=== PATIENT | female | born 2000 | race Caucasian/White ===

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

== ENCOUNTER → 2018-08-28 17:01 | Outpatient (CLI) | payer OTHER, SELFPAY ==
--- NOTE | 2018-08-28 17:07 | RAD_ITS ---
STUDY: X-RAY - LUMBAR SPINE REASON FOR EXAM: Female, 18 years old. Pain TECHNIQUE: 5 view(s) of the lumbar spine were obtained. COMPARISON: xray spine feb 09, 2015 FINDINGS: There is no evidence of fracture or dislocation in the lumbar spine. The vertebral body heights and disc spaces are well-maintained. There are no significant degenerative changes. RAD/L/S Spine Min 4 Views IMPRESSION: No fracture or dislocation in the lumbar spine. Electronically Signed: Micky Richards, at 17:44 EDT Tel , Service support ,
== END ==
PROVIDERS: Family Provider Family Medicine; PCP Family Medicine; Referring Provider Family Medicine; Visit Provider Family Medicine
DX: M54.9 Dorsalgia, unspecified (principal)
CPT/HCPCS: 72110

== ENCOUNTER → 2019-11-12 10:28 | Outpatient (CLI) | payer BC, SELFPAY | PROVIDERS: PCP Family Medicine; Visit Provider Obstetrics & Gynecology | DX: Z11.3 Encounter for screening for infections with a predominantly sexual mode of transmission (principal) ==

== ENCOUNTER 2022-12-12 03:05 | Outpatient (CLI) | payer BC, MEDICAID, SELFPAY ==
[2022-12-12] VITALS (16 sets, daily range): BP systolic 132–155; BP diastolic 77–99; PULSE 75–97; TEMP 37; O2SAT 84–100; BMI 30.7
[2022-12-12] MEDS: Lactated Ringers 1,000 ML 999 ML IV (04:10)
[2022-12-12 04:20] LABS: ROM Internal Control Test YES-OK TO RESULT pt. (Internal QC); ROM Patient Test Negative (Negative); Record Kit Lot#, ROM+ K1409
[2022-12-12 04:22] LABS: Mucous, Urine 0 SEEN /hpf (<or=2+); White Blood Cells 0 SEEN /hpf (0-5)
[2022-12-12 04:24] LABS: Hemoglobin 14.1 g/dL (12.0-15.0); Mean Corp Hgb Conc 33.6 g/dL (32-36); Mean Corpuscular Hgb 29.9 pg (27.0-32.0); Mean Corpuscular Volume 89.2 fL (81-99); Platelet Count 355 K/mm3 (150-450); RBC Distribution Width CV 12.7 % (11.6-14.6); RBC Distribution Width SD 41.8 fl (35.1-43.9); Red Blood Count 4.71 M/mm3 (4.2-5.4); White Blood Count 9.7 K/mm3 (4.4-11.0)
[2022-12-12 04:32] LABS: Color, Urine Yellow (Yellow); Glucose, Dipstick Normal (Normal); Ketone-Dipstick Negative (Negative); Leukocyte Esterase-Dipstick Negative /ul (Negative); Nitrite-Dipstick Negative (Negative); Occult Blood-Urine 10 /ul (Negative); Protein-Dipstick 30 mg/dl (Negative); Urine Bilirubin Dipstick Negative (Negative); Urine Clarity Clear (Clear); Urine Urobilinogen Normal (Normal)
[2022-12-12 04:37] LABS: Bacteria 1+ /hpf (None Seen); Protein, Urine (Random) 27.1 mg/dL (<11.9); Protein:Creat Ratio 228 mg/g CRE (0-200); Red Blood Cells-Urine 0-5 SEEN /hpf (0-5); Squamous Epithelial Cells - UA 5-10 SEEN /hpf (5-10)
[2022-12-12 04:38] LABS: AST(SGOT) 17 U/L (15-37); Alanine Aminotransfer ALT/SGPT 15 U/L (13-56); Creatinine, Serum 0.69 mg/dL (0.55-1.02); EST Glomerular Filtration Rate 111 mL/min (>60); Est Glom Filt Rate - Afr Amer 135 mL/min (>60)
[2022-12-12] MEDS: Betamethasone/Betamethasone 30 MG/5 ML Vial 12 MG IM (05:17)
[2022-12-12] MEDS: Lactated Ringers 1,000 ML 125 ML IV (05:20)
[2022-12-12 06:06] LABS: Group B Strep DNA By PCR Negative (Negative); Internal Control PASS; Probe Check PASS; Specimen Processing Control PASS
--- NOTE | 2022-12-12 11:33 | OB.TRI.NOTE ---
HPI - General General Date of Service: 12/12/22 HPI Narrative HANNY SHOOK, is a 22 F who presents at 34.4 weeks for uterine contractions, is a patient of Dr Monet at [facility]. Maternal Data Information Gestational age: 34.4 weeks PFSH PFSH Home Medications No Known/Unobtainable [No Known Home Medications] 07/23/16 [History Last Taken Unknown] Allergy/AdvReac Type Severity Reaction Status Date / Time pineapple Allergy Severe Anaphylaxis Verified 12/12/22 03:31 pumpkin Allergy Hives Verified 12/12/22 03:31 turkey AdvReac Unknown other Verified 12/12/22 03:31 Social History Smoking Status: Never smoker ROS Constitutional Constitutional: Reports systems reviewed and no addt'l complaints, except as documented Cardiovascular Cardiovascular: Reports systems reviewed and no addt'l complaints, except as documented Respiratory/Chest Respiratory/Chest: Reports systems reviewed and no addt'l complaints, except as documented Gastrointestinal Gastrointestinal: Reports systems reviewed and no addt'l complaints, except as documented Genitourinary Genitourinary: Reports systems reviewed and no addt'l complaints, except as documented Musculoskeletal Musculoskeletal: Reports systems reviewed and no addt'l complaints, except as documented Integumentary Integumentary: Reports systems reviewed and no addt'l complaints, except as documented Neurologic Neurologic: Reports systems reviewed and no addt'l complaints, except as documented Psychiatric Psychiatric: Reports systems reviewed and no addt'l complaints, except as documented Endocrine Endocrinology: Reports systems reviewed and no addt'l complaints, except as documented Hematologic/Lymphatic Hematologic/Lymphatic: Reports systems reviewed and no addt'l complaints, except as documented Allergic/Immunologic Allergic/Immunologic: Reports systems reviewed and no addt'l complaints, except as documented Physical Exam Const General Appearance: cooperative and comfortable Resp normal respiratory effort, no retractions and no use of accessory muscles GI Inspection: gravid Extremity normal to inspection and full ROM Neuro moves all extremities Psych mental status grossly normal NST FHR Rate Baby B Baseline: 130 Variability:: Moderate Accelerations:: 15 x 15 Decelerations:: None NST Reactive:: Yes FHR Category:: Category I Uterine Activity:: irregular-mild Assessment & Plan (1) Uterine contractions during : PLAN: No cervical change celestone IM Repeat Celestone in 24 hours Follow up with primary OB (2) Elevated blood pressure complicating , antepartum: PLAN: PIH labs normal. Plan BID BPs at home with home monitor. Call primary OB with reading-follow up in the office. Charges/Coding Multi Select Codes Visit Charges Office Visit/Consults: 96144 OV L3 New Urinary/Genital Urinary/Genital CPT Codes: 60769-23 non-stress test Interp
== END 2022-12-12 07:55 | disposition home or self-care (01) ==
LOC: WPOUT 03:17 → WP 03:17
PROVIDERS: Registered Nurse; PCP Family Medicine; Referring Provider Obstetrics & Gynecology; Visit Provider Obstetrics & Gynecology
DX: O47.03 False labor before 37 completed weeks of gestation, third trimester (principal); Z3A.34 34 weeks gestation of pregnancy; O99.891 Other specified diseases and conditions complicating pregnancy; R03.0 Elevated blood-pressure reading, without diagnosis of hypertension
CPT/HCPCS: 96360; 96361; 96372; 36415; 59025; 59050; 81001; 82565; 82570; 84112; 84156; 84450; 84460; 84550; 85027; 87081; 87653; J7120; J0702

== ENCOUNTER 2022-12-13 07:00 | Outpatient (CLI) | payer BC, MEDICAID, SELFPAY ==
[2022-12-13] MEDS: Betamethasone/Betamethasone 30 MG/5 ML Vial 12 MG IM (07:27)
[2022-12-13 08:41] VITALS: BP 127/64; PULSE 80
== END 2022-12-13 07:30 | disposition home or self-care (01) ==
LOC: WPOUT 07:07 → WP 07:07
PROVIDERS: PCP Family Medicine; Referring Provider Obstetrics & Gynecology; Visit Provider Obstetrics & Gynecology
DX: O47.03 False labor before 37 completed weeks of gestation, third trimester (principal); Z3A.34 34 weeks gestation of pregnancy
CPT/HCPCS: 96372; J0702

== ENCOUNTER 2022-12-15 18:40 | Inpatient (IN) | payer BC, MEDICAID, SELFPAY ==
[2022-12-15] VITALS (54 sets, daily range): BP systolic 113–187; BP diastolic 84–109; PULSE 75–104; RESP 15–16; TEMP 36.5–37.3; O2SAT 97–100; BMI 31.4
--- NOTE | 2022-12-15 18:49 | PCM.HP.OB ---
HPI - General General Date of Admission: 12/15/22 Date of Service: 12/15/22 Chief Complaint: elevated BP HPI Narrative HANNY SHOOK, is a 22 F who presents with elevated blood pressure at home. She receives care with Dr. Apolonia Guzmán. She states she was in OB triage a few days ago with mild range BP's. Pre e labs at that time were normal. She was given BMZ x 2 at that time. She says she has been monitoring her blood pressures at home. Her SBP today at home was 170's. She called the after hours line for Dr. Guzmán and was told to go to [facility] for evaluation. She came to [facility] as she lives closer to [facility]. She reports a MOYA behind her eyes, blurred vision, upper abdominal pain, and nausea. She denies ctx, vb, lof. DFM today. [facility] Medical History (Updated 12/15/22 @ 23:[address] Courtney Graham, DO) Family history of malignant hyperthermia Pre-eclampsia Home Medications No Known/Unobtainable [No Known Home Medications] 07/23/16 [History Last Taken Unknown] Allergy/AdvReac Type Severity Reaction Status Date / Time pineapple Allergy Severe Anaphylaxis Verified 12/12/22 03:31 pumpkin Allergy Hives Verified 12/12/22 03:31 turkey AdvReac Unknown other Verified 12/12/22 03:31 Surgical History (Updated 12/15/22 @ 19:35 by Wendy Mims) History of surgery Social History Smoking Status: Never smoker NST FHR Rate Baby A Baseline: 140 Variability:: Moderate Accelerations:: 15 x 15 Decelerations:: None Uterine Activity:: no regular ctx's Vital Signs Vital Signs Vital Signs: 12/15/22 18:25 12/15/22 18:25 12/15/22 18:28 Pulse Rate 78 Blood Pressure 179/108 H BP Systolic 179 BP Diastolic 108 Pulse Ox 99 12/15/22 18:28 12/15/22 18:30 12/15/22 18:30 Pulse Rate 75 81 Blood Pressure BP Systolic BP Diastolic Pulse Ox 98 12/15/22 18:35 12/15/22 18:35 12/15/22 18:38 Pulse Rate 85 Blood Pressure 185/109 H BP Systolic 185 BP Diastolic 109 Pulse Ox 99 12/15/22 18:38 12/15/22 18:40 12/15/22 18:40 Pulse Rate 78 80 Blood Pressure 178/105 H BP Systolic 178 BP Diastolic 105 Pulse Ox 12/15/22 18:40 12/15/22 18:45 12/15/22 18:45 Pulse Rate 79 Blood Pressure BP Systolic BP Diastolic Pulse Ox 98 99 Weight Weight: 161 lb Body Mass Index (BMI) 31.4 Physical Exam Const alert and no apparent distress General Appearance: comfortable HEENT normocephalic Resp normal respiratory effort GI soft to palpation, non-tender and non-distended Extremity normal to inspection Neuro deep tendon reflexes 2+ bilaterally Labs Labs Labs: Blood Type B NEGATIVE Antibody Screen POSITIVE Hct 40.2 % (37-47) Hgb 13.9 g/dL (12.0-15.0) Group B Strep DNA Negative (Negative) Miscellaneous Test Assessment & Plan (1) 34 weeks gestation of : PLAN: Pt of Dr. Guzmán here for r/o pre e. BP severe range on admission, and on repeat: SBP 170-180 - Labetalol hypertensive protocol started - Mag for seizure prophylaxis - Fluid restrictions - Strict I&O's - Pre e labs with elevated p/c ratio - Tylenol x 1 for MOYA - CEFM - S/p BMZ x 2 - GBS negative - Start induction of labor for pre eclampsia with severe features given persistent MOYA, vision changes, severe range blood pressures requiring IV medication. Discussed special care nursery and there is a possibility that baby is transferred for higher level of care. Discussed possible section (2) Elevated blood pressure complicating , antepartum: (3) Headache in :
[2022-12-15] MEDS: Labetalol (Prefilled) 20 MG/4 ML IV (19:05)
[2022-12-15] MEDS: Magnesium Sulfate 4gm/100mL 4 GM/100 ML IV.SOLN. IV (19:06)
[2022-12-15] MEDS: Lactated Ringers 1,000 ML 15 ML IV (19:06)
[2022-12-15 19:09] LABS: Hematocrit 40.2 % (37-47); Hemoglobin 13.9 g/dL (12.0-15.0); Mean Corp Hgb Conc 34.6 g/dL (32-36); Mean Corpuscular Hgb 30.7 pg (27.0-32.0); Mean Corpuscular Volume 88.7 fL (81-99); Mean Platelet Vol. 10.2 fl (6.2-12.0); Platelet Count 374 K/mm3 (150-450); RBC Distribution Width CV 12.8 % (11.6-14.6); RBC Distribution Width SD 41.7 fl (35.1-43.9); Red Blood Count 4.53 M/mm3 (4.2-5.4); White Blood Count 13.3 K/mm3 (4.4-11.0)
[2022-12-15 19:13] LABS: AST(SGOT) 26 U/L (15-37); Alanine Aminotransfer ALT/SGPT 27 U/L (13-56); Creatinine, Serum 0.67 mg/dL (0.55-1.02); EST Glomerular Filtration Rate 114 mL/min (>60); Est Glom Filt Rate - Afr Amer 138 mL/min (>60); Uric Acid 5.3 mg/dL (2.6-6.0)
[2022-12-15 19:14] LABS: Protein, Urine (Random) 95.7 mg/dL (<11.9); Protein:Creat Ratio 1300 mg/g CRE (0-200)
[2022-12-15] MEDS: Magnesium Sulfate 20 GM/500 ML BAG IV (19:24)
[2022-12-15 19:28] LABS: Amphetamine Urine VISTA NEGATIVE (<1000 ng/mL); Barbiturate Urine VISTA NEGATIVE (< 200 ng/mL); Benzodiazepine Urine VISTA NEGATIVE (< 200 ng/mL); Cocaine Urine VISTA NEGATIVE (< 300 ng/mL); Ecstacy Urine VISTA NEGATIVE (< 500 ng/mL); Methadone Urine VISTA NEGATIVE (< 300 ng/mL); PCP Urine VISTA NEGATIVE (< 25 ng/mL); THC Urine VISTA NEGATIVE (< 50 ng/mL); Vista UDS pH Range 6
[2022-12-15] MEDS: 0.9% Normal Saline Single 100 ML IV.SOLN. INTRA-UTER (20:17)
[2022-12-15] MEDS: Labetalol 100 MG Tablet PO (21:21)
[2022-12-15] MEDS: Acetaminophen 500 MG Tablet PO (21:51)
[2022-12-15] MEDS: Sodium Citrate/Citric Acid 30 ML UDC PO (21:51)
[2022-12-15] MEDS: Cefazolin 2 GM in 0.9% Normal Saline (100mL Bag) 100 ML IV (22:00)
--- NOTE | 2022-12-15 23:22 | PCM.PN.BLA ---
Progress Note Delayed entry. Presented to L&D to check on pt around 2138. Pt reports doing well and offered no new complaints. Assessment & Plan Assessment/Plan (1) Headache in : (2) 34 weeks gestation of : (3) intolerance to labor, delivered, current hospitalization: PLAN: At bedside to check on pt. FHT 140/min rocio/no accels/+occasional late decels. Discussed with patient intolerance to labor and recommend section. Discussed r/b/a to a section and consent obtained. (4) Elevated blood pressure complicating , antepartum:
[2022-12-15] MEDS: Oxytocin 15 Units/NS 250ml 15 UNITS/250 ML IV.SOLN 83 UNITS IV (23:23)
--- NOTE | 2022-12-15 23:28 | PCM.OPRPT ---
Problems Associated Problem List Diagnoses (1) Pre-eclampsia: (2) intolerance to labor, delivered, current hospitalization: (3) 34 weeks gestation of : Report of Operation Date of Procedure: 12/15/22 Pre-Operative Diagnosis: 34 week gestation, single IUP, pre eclampsia with severe features, intolerance to labor Post-Operative Diagnosis: As above Surgery/Procedure Performed:: PLTCS via pfannenstiel incision Description of Surgical Findings:: VFI in cephalic presentation. Scant clear fluid. Normal appearing placenta. Normal appearing uterus and bilateral adnexa Surgeon: Courtney Graham certified nursing attendant: Kelly PEÑA Type of Anesthesia: Spinal Special Medications: None Specimen's removed: Placenta Drains: Soto Estimated Blood Loss (mL): 500 Fluids Replaced: 700 mL Description of Procedure: The patient was taken to the operating room where spinal anesthesia was found to be adequate. She was prepped and draped in the dorsal supine position with a leftward tilt. A Pfannenstiel skin incision was made with a scalpel. This incision was carried down to the underlying layer of fascia. The fascia was incised in the midline with a scalpel. The fascia was extended laterally with traction. The rectus muscles were in the midline. The peritoneum was entered bluntly with good visualization of the bladder. The peritoneal incision was extended bluntly. A bladder blade was inserted. A low transverse incision was made on the uterus with a scalpel. The uterine incision was extended with traction both cephalad and caudad. Membranes were ruptured for a scant amount of clear fluid. The head of the infant was delivered easily through the hysterotomy followed by the shoulders and the body without any traction, force, or delay. The cord was clamped and cut immediately and the infant was handed off to the waiting nursery staff. The placenta was removed with manual extraction. The uterus was cleared of all clot and debris. The uterus was exteriorized. The uterine incision was closed with 1-0 Vicryl in a running locked fashion. Several additional [id number] sutures were placed for hemostasis. Uterus was placed back in the abdomen. Kelly was placed over the hysterotomy and lower uterine segment. Hemostasis was again noted. The subfascial space was noted to be hemostatic. The fascia was closed with strata fix in a running fashion. The subcutaneous space was irrigated and then to be hemostatic. The subcutaneous space was reapproximated using 3-0 Vicryl. The skin was closed with 4-0 Monocryl in a subcuticular fashion. A dressing was placed. Instrument, sponge, sharp counts were correct. The patient was taken to the recovery room in stable condition. The expanded duty dental assistant as noted above was present for the entire case and assisted with draping the patient, delivery of the infant, and closure. Grafts/Implants Used: None Procedure Start Time: 22:23 Procedure Stop Time: 22:58 Complications None Admit VTE Documentation VTE Present on Admission: No VTE Mechan Device Prophylaxis: SCD's
[2022-12-16] VITALS (61 sets, daily range): BP systolic 116–140; BP diastolic 68–95; PULSE 76–103; RESP 16–18; TEMP 36.2–37.3; O2SAT 88–100
[2022-12-16] MEDS: Ketorolac 30 MG/ML Syringe IV ×4 (00:58→18:58)
[2022-12-16] MEDS: Lactated Ringers 1,000 ML 15 ML IV (02:48)
[2022-12-16 04:07] LABS: Hematocrit 34.2 % (37-47); Hemoglobin 11.6 g/dL (12.0-15.0); Mean Corp Hgb Conc 33.9 g/dL (32-36); Mean Corpuscular Hgb 30.1 pg (27.0-32.0); Mean Corpuscular Volume 88.8 fL (81-99); Mean Platelet Vol. 9.7 fl (6.2-12.0); Platelet Count 262 K/mm3 (150-450); RBC Distribution Width CV 12.8 % (11.6-14.6); RBC Distribution Width SD 41.1 fl (35.1-43.9); Red Blood Count 3.85 M/mm3 (4.2-5.4); White Blood Count 15.7 K/mm3 (4.4-11.0)
[2022-12-16] MEDS: Magnesium Sulfate 20 GM/500 ML BAG IV ×2 (04:07→14:14)
[2022-12-16 04:29] LABS: ALB/GLOB Ratio 0.7 RATIO (0.9-2.4); AST(SGOT) 22 U/L (15-37); Alanine Aminotransfer ALT/SGPT 16 U/L (13-56); Albumin, Serum 2.1 g/dL (3.2-5.0); Alkaline Phosphatase 116 U/L (45-117); Anion Gap 9 (5-15); BUN 12 mg/dL (7-18); BUN/Creat Ratio 18.1 RATIO (10-20); Calcium,Total 6.8 mg/dL (8.5-10.1); Chloride 107 mmol/L (98-107); Creatinine, Serum 0.66 mg/dL (0.55-1.02); EST Glomerular Filtration Rate 116 mL/min (>60); Est Glom Filt Rate - Afr Amer 141 mL/min (>60); Estimated Creatinine Clearance 94.41 ml/min; Glucose 98 mg/dL (74-106); Potassium 3.5 mmol/L (3.5-5.1); Protein, Total 5.1 g/dL (6.4-8.2); Sodium Level 139 mmol/L (136-145)
--- NOTE | 2022-12-16 08:47 | PN.OBGYN_ITS ---
Subjective Subjective Patient denies nausea or vomiting, headache or overt visual changes. Pain well controlled. Objective Data Objective Data Vital Signs: Vital Signs Temp Pulse Resp BP Pulse Ox O2 Del Method 97.4 F L 86 18 136/89 H 100 Room Air 12/16/22 07:39 12/16/22 08:38 12/16/22 07:39 12/16/22 08:38 12/16/22 07:39 12/16/22 07:39 Oxygen Delivery Method Room Air Weight: 73.028 kg Body Mass Index (BMI) 31.4 Intake & Output: Intake and Output for Last 24 Hours 12/14/22 12/15/22 12/16/22 23:59 23:59 23:59 Intake Total 1210.00 / 1210.00 1085.83 / 1085.83 Output Total 800 / 800 800 / 800 Balance 410.00 / 410.00 285.83 / 285.83 Lab / Micro Data 12/16/22 04:00 12/16/22 04:00 Labs: Laboratory Results - last 24 hr 12/15/22 18:40: WBC 13.3 H, RBC 4.53, Hgb 13.9, Hct 40.2, MCV 88.7, MCH 30.7, MCHC 34.6, RDW Std Deviation 41.7, RDW Coeff of Philomena 12.8, Plt Count 374, MPV 10.2, Creatinine 0.67, Estim Creat Clear Calc 93.00, Est GFR (MDRD) Af Amer 138, Est GFR (MDRD) Non-Af 114, Uric Acid 5.3, AST 26, ALT 27, U Random Total Protein 95.7 H, Urine Creatinine 73.60, Protein/Creatinin Ratio 1300 H, Urine Opiates Screen NEGATIVE, Urine Methadone Screen NEGATIVE, Ur Barbiturates Screen N EGATIVE, Ur Phencyclidine Scrn NEGATIVE, Ur Amphetamines Screen NEGATIVE, MDMA (Ecstasy) Screen NEGATIVE, U Benzodiazepines Scrn NEGATIVE, Urine Cocaine Screen NEGATIVE, U Cannabinoids Screen NEGATIVE, Ur Drug Screen Comment , Blood Type B NEGATIVE, Antibody Screen POSITIVE, Antibody Identification ANTI-D 12/16/22 04:00: WBC 15.7 H, RBC 3.85 L, Hgb 11.6 L, Hct 34.2 L, MCV 88.8, MCH 30.1, MCHC 33.9, RDW Std Deviation 41.1, RDW Coeff of Philomena 12.8, Plt Count 262, MPV 9.7, Sodium 139, Potassium 3.5, Chloride 107, Carbon Dioxide 23.0, Anion Gap 9, BUN 12, Creatinine 0.66, Estim Creat Clear Calc 94.41, Est GFR (MDRD) Af Amer 141, Est GFR (MDRD) Non-Af 116, BUN/Creatinine Ratio 18.1, Glucose 98, Calcium 6.8 L, Total Bilirubin 0.20, AST 22, ALT 16, Alkaline Phosphatase 116, Total Protein 5.1 L, Albumin 2.1 L, Globulin 3.0, Albumin/Globulin Ratio 0.7 L, Screen NEGATIVE, Baby's Blood Type A POSITIVE, Baby's JOHNNY NEGATIVE Physical Exam Narrative Extremities with 1+ edema, 3+ DTR's and 2 beats of clonus Const alert General Appearance: cooperative GI GI Narrative: soft, moderate distention, fundus firm, appropriately tender. Abdominal bandage clean dry and intact Assessment & Plan (1) Pre-eclampsia: PLAN: Postoperative day #1 status post primary section for intolerance to labor, preeclampsia with severe features at 34 weeks gestation. is in the special care nursery and doing well. Patient is doing well. Continue magnesium prophylaxis for 24 hours. Continue to monitor blood pressures closely and continue maintenance labetalol for preeclampsia. Routine care. (2) delivery delivered:
[2022-12-16] MEDS: Senna/Docusate Sodium 1 Tablet PO (10:32)
[2022-12-16] MEDS: Labetalol 100 MG Tablet PO ×2 (10:32→22:29)
[2022-12-17] VITALS (9 sets, daily range): BP systolic 114–139; BP diastolic 69–87; PULSE 73–87; RESP 14–16; TEMP 36.3–37.1; O2SAT 97–99
[2022-12-17] MEDS: Ibuprofen 600 MG Tablet PO ×4 (01:22→19:12)
--- NOTE | 2022-12-17 08:19 | PCM.PN.OB ---
Subjective Subjective Denies complaints Objective Data Objective Data Vital Signs: Vital Signs Temp Pulse Resp BP Pulse Ox O2 Del Method 98.5 F 82 16 130/77 H 97 Room Air 12/17/22 04:15 12/17/22 04:15 12/17/22 04:15 12/17/22 04:15 12/17/22 04:15 12/17/22 04:15 Oxygen Delivery Method Room Air Weight: 161 lb Body Mass Index (BMI) 31.4 Intake & Output: Intake and Output for Last 24 Hours 12/15/22 12/16/22 12/17/22 23:59 23:59 23:59 Intake Total 1210.00 / 1210.00 3019.66 / 3019.66 Output Total 800 / 800 2400 / 2400 800 / 800 Balance 410.00 / 410.00 619.66 / 619.66 -800 / -800 Lab / Micro Data 12/16/22 04:00 12/16/22 04:00 Physical Exam Const alert, oriented x3 and no apparent distress HEENT normocephalic GI soft to palpation, non-tender and non-distended GI Narrative: fundus firm, mid & below umbilicus Incision - bandage c/d/i Extremity normal to inspection and no calf tenderness Assessment & Plan (1) delivery delivered: COMMENT: POD#2 (2) Pre-eclampsia: QUALIFIERS: Trimester: third trimester Qualified Code(s): O14.93 - Unspecified pre-eclampsia, third trimester PLAN: Plan Heme - HDS ID - AF, no signs infection PreE - BP's overall normal & will monitor.. s/p magnesium sulfate.
[2022-12-17] MEDS: Labetalol 100 MG Tablet PO ×2 (10:11→22:08)
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
--- NOTE | 2022-12-17 15:44 | NURSING ---
1430 pt moved to room 3 for hospital convenience; pt spending time in the SCN with
[2022-12-18 02:28] VITALS: BP 122/89; PULSE 73; RESP 16; TEMP 37; O2SAT 99
[2022-12-18] MEDS: Ibuprofen 600 MG Tablet PO ×2 (02:28→09:33)
--- NOTE | 2022-12-18 08:12 | PCM.PROGNOTE ---
Subjective Subjective patient seen at bedside, doing well. Patient reports good pain control. lochia mild. denies MOYA, visual changes or epigastric pain. Objective Data Objective Data Vital Signs: Vital Signs Temp Pulse Resp BP Pulse Ox O2 Del Method 98.6 F 73 16 122/89 H 99 Room Air 12/18/22 02:28 12/18/22 02:28 12/18/22 02:28 12/18/22 02:28 12/18/22 02:28 12/18/22 02:28 Oxygen Delivery Method Room Air Weight: 73.028 kg Body Mass Index (BMI) 31.4 Intake & Output: Intake and Output for Last 24 Hours 12/16/22 12/17/22 12/18/22 23:59 23:59 23:59 Intake Total 3019.66 / 3019.66 Output Total 2400 / 2400 800 / 800 Balance 619.66 / 619.66 -800 / -800 Lab / Micro Data 12/16/22 04:00 12/16/22 04:00 Physical Exam Const alert and oriented x3 General Appearance: cooperative HEENT normocephalic Neck General: normal visual inspection GI soft to palpation and non-distended GI Narrative: Fundus firm Extremity normal to inspection and no calf tenderness Skin no rashes or lesions noted Neuro oriented x3 and CN's II-XII intact bilaterally Psych mental status grossly normal Assessment & Plan Assessment/Plan (1) delivery delivered: (2) Pre-eclampsia: QUALIFIERS: Trimester: third trimester Qualified Code(s): O14.93 - Unspecified pre-eclampsia, third trimester PLAN: Plan POD# 3 , Doing well PRE E with severe features Routine care pain mgmt monitor VS- BPs wnl - no medication indicated at this time ambulation dc to hotel has follow up with primary OB tomorrow- Dr. Monet total time spent face to face on day of discharge was <30min
--- NOTE | 2022-12-18 08:14 | PCM.DC ---
Discharge Instructions Diet Discharge Diet: No restrictions Activity May resume sexual activity in: 6-8 weeks Lifting Restrictions: 25 Dressing / Incision Call your doctor if your incision/area has: Continuous Slow Oozing, Sudden Increased Bleeding, Increased Pain/ Swelling, Increased Redness, Foul Smelling Discharge and Swelling at the incision site Call your doctor if you observe: Fever of 101 or Higher, Inability to urinate, Using more than 1 pad per hour and Uncontrolled pain Additional Dressing/Incision Instructions:: remove dressing at 7 days post op- if it becomes saturated prior to that time you may remove it. Let soap and water run over incision sites and dab dry. keep incision clean and dry. Follow Up Care Please Follow Up With: Tish Frazier MD When: 1-2 weeks post of incision check and again at 6 weeks post . [phone] Test Results: Test results from this visit will be discussed in further detail at your follow-up appointment, if applicable. Discharge Plan Admission Admit Date/Time: 12/15/22 18:40 Attending Provider: Courtney Graham Primary Care Provider: Viktor Pugh Discharge Orders/Prescriptions Prescriptions: New sennosides-docusate sodium [Stool Softener-Stimulant Laxat] 8.6-50 mg Tablet 1 - 2 tab PO DAILY Qty: 0 0RF acetaminophen 500 mg Tablet 1,000 mg PO Q6H Qty: 0 0RF ibuprofen 600 mg Tablet 600 mg PO Q6H Qty: 0 0RF labetalol 100 mg Tablet 100 mg PO BID 30 Days Qty: 60 0RF simethicone 80 mg Tablet,Chewable 80 mg PO PCHS PRN (Reason: Indigestion/stomach pain) Qty: 0 0RF No Action No Known Home Medications Referrals / Follow Up: Viktor Pugh MD [Primary Care Provider] - Disposition Disposition (needs filled in before D/C Order can be placed): Home, Self Care
--- NOTE | 2022-12-18 08:18 | DS.PCM_ITS ---
Discharge Summary Date of Admission: 12/15/22 Date of Discharge: 12/18/22 Summary: Patient was admitted to [facility] with care elsewhere with Dr. Apolonia Monet. She is 34 weeks gestation with severe range blood pressure. Started on magnesium sulfate diagnosed with preeclampsia with severe features. Patient admitted for induction of labor however intolerance to labor was noted and patient underwent a primary low-transverse section Dr. Rutledge was well without complication. Patient was started on labetalol 100 mg twice daily for maintenance postoperatively and blood pressures remained in normal range. Patient was discharged home postoperative day 3 in stable condition. She will follow-up with her primary OB on 12/19/2022 as scheduled. Meaningful Use Info Meaningful Use Diagnoses (Choose all that apply): None applicable Discharge Plan Admission Admit Date/Time: 12/15/22 18:40 Attending Provider: Courtney Graham Primary Care Provider: Viktor Pugh Discharge Orders/Prescriptions Prescriptions: New sennosides-docusate sodium [Stool Softener-Stimulant Laxat] 8.6-50 mg Tablet 1 - 2 tab PO DAILY Qty: 0 0RF acetaminophen 500 mg Tablet 1,000 mg PO Q6H Qty: 0 0RF ibuprofen 600 mg Tablet 600 mg PO Q6H Qty: 0 0RF labetalol 100 mg Tablet 100 mg PO BID 30 Days Qty: 60 0RF simethicone 80 mg Tablet,Chewable 80 mg PO PCHS PRN (Reason: Indigestion/stomach pain) Qty: 0 0RF No Action No Known Home Medications Referrals / Follow Up: Viktor Pugh MD [Primary Care Provider] - Disposition Disposition (needs filled in before D/C Order can be placed): Home, Self Care
[2022-12-18] MEDS: Labetalol 100 MG Tablet PO (09:34)
[2022-12-18 09:37] VITALS: BP 131/81; PULSE 92; RESP 18; TEMP 36.7; O2SAT 97
== END 2022-12-18 10:00 | disposition home or self-care (01) | DRG 786 ==
LOC: WP 22:38 → WPOUT 12-16 14:15
PROVIDERS: Admitting Provider Obstetrics & Gynecology; PCP Family Medicine; Visit Provider Obstetrics & Gynecology
DX: O77.9 Labor and delivery complicated by fetal stress, unspecified (principal); O60.14X0 Preterm labor third trimester with preterm delivery third trimester, not applicable or unspecified; O14.14 Severe pre-eclampsia complicating childbirth; Z37.0 Single live birth; Z3A.34 34 weeks gestation of pregnancy
CPT/HCPCS: 59025; 59050; 80053; 80307; 82565; 82570; 84156; 84450; 84460; 84550; 85027; 85461; 86850; 86870; 86900; 86901; 99221; J7120; G0378; J2790

== ENCOUNTER 2024-05-18 17:30 | Emergency (ER) | payer BC, MEDICAID, SELFPAY ==
[2024-05-18 17:31] VITALS: BP 128/77; PULSE 101; RESP 18; TEMP 37.1; O2SAT 100; BMI 26.9
[2024-05-18] MEDS: 0.9% Normal Saline (1000mL) 1,000 ML 999 ML IV ×2 (18:53→22:52)
[2024-05-18 19:05] LABS: Absolute Lymphocyte Count 0.68 X10^3/uL (0.83-4.51); Absolute Neutrophil Count 6.9 X10^3/uL (2.0-7.7); Basophil# 0.02 X10^3/uL; Basophil% 0.2 % (0-1); Eosinophil# 0.03 X10^3/uL; Eosinophils% 0.4 % (0-5); Hematocrit 44.1 % (37-47); Hemoglobin 14.7 g/dL (12.0-15.0); Lymphocyte # 0.68 X10^3/ul (0.83-4.51); Lymphocyte % 8.3 % (19-41); Mean Corp Hgb Conc 33.3 g/dL (32-36); Mean Corpuscular Hgb 29.6 pg (27.0-32.0); Mean Corpuscular Volume 88.7 fL (81-99); Mean Platelet Vol. 8.3 fl (6.2-12.0); Monocyte# 0.57 X10^3/uL; NRBC Flagged by Analyzer 0 % (0-5); Neutrophil # 6.87 X10^3/uL (2.7-7.7); Neutrophil % 83.9 % (47-70); Platelet Count 344 K/mm3 (150-450); RBC Distribution Width CV 12.7 % (11.6-14.6); RBC Distribution Width SD 41.2 fl (35.1-43.9); Red Blood Count 4.97 M/mm3 (4.2-5.4); White Blood Count 8.2 K/mm3 (4.4-11.0)
[2024-05-18 19:28] LABS: Internal QC Validated? YES +Cl - CLEAR BKGD; Pregnancy, Serum, hCG Quali. POSITIVE Negative
[2024-05-18 19:47] LABS: Lipase 26 U/L (13-75)
[2024-05-18 20:07] LABS: ALB/GLOB Ratio 1.5 RATIO (0.9-2.4); AST(SGOT) 28 U/L (<=31); Alanine Aminotransfer ALT/SGPT 24 U/L (<=34); Albumin, Serum 4.6 g/dL (3.5-5.0); Alkaline Phosphatase 68 U/L (35-104); Anion Gap 13 (5-15); BUN 8 mg/dL (4-19); BUN/Creat Ratio 13.2 RATIO (10-20); Calcium 9.3 mg/dL (7.6-11.0); Carbon Dioxide 20.9 mmol/L (22.0-29.0); Chloride 101 mmol/L (96-108); Creatinine, Serum 0.6 mg/dL (0.6-1.0); EST Glomerular Filtration Rate 129 (>60); Estimated Creatinine Clearance 118.43 ml/min; Glucose 94 mg/dL (70-99); Potassium 3.8 mmol/L (3.3-5.1); Protein, Total 7.6 g/dL (5.9-8.4); Sodium Level 135 mmol/L (133-145); Total Bilirubin 0.38 mg/dL (0.00-1.30)
[2024-05-18 20:18] VITALS: BP 126/72; PULSE 120; RESP 16; TEMP 36.6; O2SAT 100
[2024-05-18 21:08] LABS: Mucous, Urine 0 SEEN /hpf (<or=2+); White Blood Cells 0 SEEN /hpf (0-5)
[2024-05-18 21:14] LABS: Color, Urine Yellow (Yellow); Glucose, Dipstick Normal (Normal); Leukocyte Esterase-Dipstick Negative /ul (Negative); Nitrite-Dipstick Negative (Negative); Occult Blood-Urine Negative /ul (Negative); Protein-Dipstick Negative (Negative); Urine Bilirubin Dipstick Negative (Negative); Urine Clarity Clear (Clear); Urine Urobilinogen Normal (Normal); Urine pH 6.5 (5.0 - 8.0)
[2024-05-18 21:18] LABS: Ketone-Dipstick 150 mg/dl (Negative)
--- NOTE | 2024-05-18 21:29 | US_ITS ---
PROCEDURE: TRANSVAGINAL W/PREG US REASON FOR EXAM: Nausea and vomiting. COMPARISON: None. FINDINGS Transvaginal ultrasound was performed. Single live intrauterine . Gestational sac is present which is dated 7 weeks and 2 days. [place]-rump length which dates 7 weeks and 1 days. A yolk sac is visualized. heart rate of 174 beats per minute. Estimated gestational age by ultrasound of 7 weeks and 2 days. ANDREI by ultrasound of 01/02/2025. ANDREI by LMP of 11/30/2024. Uterus measures 9.1 x 6.4 x 4.7 cm. Lower uterine segment 1 0.5 cm region which may represent a subchorionic hematoma. Right ovary measures 3.0 x 3.0 x 2.0 cm with preserved vascular flow. Left ovary measures 2.9 x 1.9 x 1.4 cm with preserved vascular flow. US/Transvaginal w/Preg US IMPRESSION: Single live intrauterine . Possible subchorionic hematoma. Reading Location: [id number]
--- NOTE | 2024-05-18 21:31 | EKG12_ITS ---
Test Reason : DYSRHYTHMIA Blood Pressure : */* mmHG Vent. Rate : 118 BPM Atrial Rate : 118 BPM P-R Int : 158 ms QRS Dur : 76 ms QT Int : 338 ms P-R-T Axes : 57 69 37 degrees QTcB Int : 473 ms Sinus tachycardia Otherwise normal ECG Confirmed by Zach Garnica ([id number]), editorial writer DUYEN RAIN ([id number]) on 05/19/2024 8:24:40 AM Referred By: Confirmed By: Zach Garnica
--- NOTE | 2024-05-18 21:40 | RAD_ITS ---
PROCEDURE: CHEST 1 VIEW (PORTABLE) REASON FOR EXAM: Nausea and vomiting. TECHNIQUE: Frontal view of the chest. COMPARISON: None. FINDINGS: The cardiac and mediastinal contours are normal. The lungs are clear. RAD/Chest 1 View (Portable) IMPRESSION: NEGATIVE SINGLE VIEW OF THE CHEST. Reading Location: [place] [id number]
[2024-05-18] MEDS: Ondansetron 4 MG/2 ML Vial IV (21:48)
[2024-05-18 21:51] LABS: Bacteria RARE /hpf (None Seen); Red Blood Cells-Urine 0 SEEN /hpf (0-5); Squamous Epithelial Cells - UA 0-5 SEEN /hpf (5-10)
[2024-05-18 22:00] VITALS: BP 123/54; PULSE 117; RESP 18; O2SAT 99
--- NOTE | 2024-05-18 22:17 | EDS_ITS ---
HPI HPI - Female History of Present Illness Chief Complaint: Narrative Narrative: Chief complaint and HPI: Nausea and vomiting in first trimester . 23-year-old female who is G2, P1 presents for evaluation of nausea and vomiting in first trimester . Patient states she is approximately 8 weeks by last menstrual period. Has not had an ultrasound. Patient follows with Dr. Graham with [facility]. Patient states that she developed nausea and vomiting this Friday that has not improved. She states she has had little p.o. intake secondary to the nausea and vomiting. She is not on any antinausea medication. Patient endorses cough. Denies any fever, chills, shortness of breath, chest pain, diarrhea, dysuria. Patient states her last meal was earlier today in which she had [employer] that resulted in emesis. She has a past medical history of a due to preeclampsia at 34 weeks. She denies any sick contacts that she knows of. Patient does endorse some mild pelvic abdominal cramping. Denies any vaginal bleeding. Denies any vaginal discharge. Review of systems: See HPI Medications: As listed on the chart Allergies: As listed on the chart PFSH: Per chart Vital signs: As listed on the chart. Reviewed. Physical exam: Gen: A&O x3, NAD Head: Normocephalic, atraumatic Eyes: No sclera icterus, conjunctiva clear ENT: Mildly dry mucous membranes Neck: Trachea midline, No JVD CV: tachycardic, regular rhythm, no murmurs, no peripheral edema Resp: Lungs CTA BL, no w/r/c GI: Abd soft, non-distended, non-tender, no r/r/g Musc: Full ROM, no deformity Skin: Warm, dry Neuro: Alert, oriented, grossly intact, sensation intact Psych: Cooperative, appropriate mood and affect [facility] Medical History (Updated 05/19/24 @ 00:[address] Rojas Atwood DO) Pre-eclampsia Family history of malignant hyperthermia Home Medications ?Medication ?Instructions ?Recorded ?Last Taken ?Type acetaminophen 500 mg tablet 1,000 mg (2 x 500 mg) PO Q 6H #0 12/18/22 Unknown Rx tabs ibuprofen 600 mg tablet 600 mg PO Q6H #0 tabs Unknown Rx azithromycin 250 mg tablet See Rx Instructions PO .COM PLEX #6 04/03/24 Unknown Rx tabs benzonatate 100 mg capsule 100 mg PO TID #30 caps 03/24 04/17 Unknown Rx ondansetron 4 mg disintegrating 4 mg PO Q8H #10 tabs 0 04/03/24 Unknown Rx tablet ondansetron 4 mg disintegrating 4 mg PO Q8H PRN PRN Na usea #10 tabs 05/19/24 Unknown Rx tablet Allergy/AdvReac Type Severity Reaction Status Date / Time pineapple Allergy Severe Anaphylaxis Verified 05/18/24 17:31 pumpkin Allergy Hives Verified 05/18/24 17:31 turkey AdvReac Unknown other Verified 05/18/24 17:31 Family History (Updated 04/03/24 @ 10:28 by Maranda Pena) Other CAD (coronary artery disease) Diabetes Hypertension Surgical History History of section History of surgery Social History (Updated 04/03/24 @ 10:28 by Maranda Pena) Smoking Status: Never smoker alcohol intake: current substance use type: does not use EXAM Physical Exam Const Vital Signs: 05/18/24 17:31 05/18/24 20:18 05/18/24 22:00 Temperature 98.7 F 97.9 F Temperature Source Oral Temporal Pulse Rate 101 H 120 H 117 H Respiratory Rate 18 16 18 Blood Pressure 128/77 H 126/72 H 123/54 H Blood Pressure Mean 94 90 77 Pulse Ox 100 100 99 Oxygen Delivery Method Room Air Room Air Room Air 05/18/24 23:57 05/19/24 01:12 Temperature 98.0 F Temperature Source Pulse Rate 88 110 H Respiratory Rate 16 18 Blood Pressure 123/67 H 120/56 L Blood Pressure Mean 85 77 Pulse Ox 99 97 Oxygen Delivery Method Room Air MDM MDM MDM Narrative Medical decision making narrative: 23-year-old female who is G2, P1 presents for evaluation of nausea and vomiting in first trimester . Associated symptom is pelvic abdominal pain and cough. Differential diagnosis includes but is not limited to nausea and vomiting secondary to , electrolyte abnormality, dehydration, pelvic abdominal pain in first trimester , ectopic , viral illness, pneumonia. Protocol labs were initiated in triage. NS bolus and Zofran ordered for symptoms. I did add on chest x-ray as well as pelvic ultrasound as patient has not had a confirmed IUP. Beta-hCG ordered. I agree with the previous labs that were ordered. CBC without leukocytosis or anemia. Platelet count unremarkable. CMP without significant electrolyte abnormality, TAJ, transaminitis. Lipase unremarkable. Serum positive. Beta-hCG 84 ,537. UA positive for ketones but negative for UTI or bacteriuria. Will give another NS bolus. Ultrasound shows a single live intrauterine . Gestational age is 7 weeks and 2 days. heart rate is 174. There is a possible subchorionic hematoma. Patient not having any vaginal bleeding. On reexamination, patient's nausea has improved. She was able to tolerate p.o. intake without any vomiting. Given patient follows with [facility], her [facility] was consulted and patient was discussed with Dr. Pena who is on-call. She agrees with the plan for discharge home and follow-up outpatient. Patient was given a prescription for Zofran as needed for nausea and vomiting at home. Strict return precautions were given. Patient confirmed understand the plan and was updated on all results. EKG: Interpreted by me/EM physician: EKG shows sinus tachycardia without acute ischemic changes. Heart rate 118 Diagnostic: Interpreted by me/EM physician: Chest x-ray without pneumonia, effusion, cardiomegaly, pneumothorax Impression: 1. Nausea and vomiting in first trimester 2. Dehydration secondary to #1 3. Pelvic pain in first trimester Lab Data Labs: Laboratory Results - last 24 hr 05/18/24 05/18/24 18:50 20:55 WBC 8.2 RBC 4.97 Hgb 14.7 Hct 44.1 MCV 88.7 MCH 29.6 MCHC 33.3 RDW Std Deviation 41.2 RDW Coeff of Philomena 12.7 Plt Count 344 MPV 8.3 Immature Gran % (Auto) 0.200 Neut % (Auto) 83.9 H Lymph % (Auto) 8.3 L [place] % (Auto) 7.0 Eos % (Auto) 0.4 Baso % (Auto) 0.2 Absolute Neuts (auto) 6.9 Absolute Lymphs (auto) 0.68 L Nucleated RBC % 0 Sodium 135 Potassium 3.8 Anion Gap 13 BUN 8 Creatinine 0.6 Estim Creat Clear Calc 118.43 Est GFR (MDRD) Non-Af 129 BUN/Creatinine Ratio 13.2 Glucose 94 Calcium 9.3 Total Bilirubin 0.38 AST 28 ALT 24 Alkaline Phosphatase 68 Total Protein 7.6 Albumin 4.6 Globulin 3.0 Albumin/Globulin Ratio 1.5 Lipase 26 HCG, Quant 18073 H Serum , Qual POSITIVE Urine Color Yellow Urine Clarity Clear Urine pH 6.5 Ur Specific [place] 1.010 Urine Protein Negative Urine Glucose (UA) Normal Urine Ketones 150 A* Urine Occult Blood Negative Urine Nitrite Negative Urine Bilirubin Negative Urine Urobilinogen Normal Ur Leukocyte Esterase Negative Urine RBC 0 SEEN Urine WBC 0 SEEN Ur Squamous Epith Cells 0-5 SEEN Urine Bacteria RARE Urine Mucus 0 SEEN Radiography Diagnostic Testing: Clinical Impression(s) from Imaging Studies Obstetrics Ultrasound 05/18/24 21:29 IMPRESSION: Single live intrauterine . Possible subchorionic hematoma. Reading Location: [id number] Chest X-Ray 05/18/24 21:40 IMPRESSION: NEGATIVE SINGLE VIEW OF THE CHEST. Reading Location: [id number] Discharge Plan Triage Chief Complaint: ED Provider: Rojas Atwood Dx/Rx/DC Orders Clinical Impression: Nausea and vomiting in , Abdominal pain during in first trimester Instructions: 1st Trimester, ED Vomiting (Adult) Prescriptions: New ondansetron 4 mg tablet,disintegrating 4 mg PO Q8H PRN PRN (Reason: Nausea) Qty: 10 0RF No Action azithromycin 250 mg tablet See Rx Instructions PO .COMPLEX Qty: 6 0RF Rx Instructions: For 250 mg dose pack: take 500 mg today (day 1), then 250 mg for 4 days (days 2-5) PO benzonatate 100 mg capsule 100 mg PO TID Qty: 30 0RF ondansetron 4 mg tablet,disintegrating 4 mg PO Q8H Qty: 10 0RF acetaminophen 500 mg Tablet 1,000 mg PO Q6H Qty: 0 0RF ibuprofen 600 mg Tablet 600 mg PO Q6H Qty: 0 0RF Primary Care Provider: Se Pugh Referrals: Se Pugh MD [Primary Care Provider] - 3-5 Days Courtney Graham DO [Med Staff - Active Staff] - 3-5 Days Activity Restrictions/Additional Instructions: Return back to the ED if symptoms change or worsen. Follow-up with your [facility]. Print Language: Filipino Disposition Disposition: Home, Self Care Discharge Date/Time: 05/19/24 01:12
--- NOTE | 2024-05-18 23:44 | ED.RN ---
called chemistry asking for eta on pt's hcq quant. Was told test has 14 more mins
[2024-05-18 23:57] VITALS: BP 123/67; PULSE 88; RESP 16; O2SAT 99
[2024-05-18 23:57] LABS: hCG Titer Quant., Serum 84537 mIU/mL (<9 non-preg)
[2024-05-19 01:12] VITALS: BP 120/56; PULSE 110; RESP 18; TEMP 36.7; O2SAT 97
== END 2024-05-19 01:12 | disposition home or self-care (01) ==
PROVIDERS: Emergency Provider Surgery; PCP Family Medicine; Visit Provider Surgery
DX: O21.9 Vomiting of pregnancy, unspecified (principal); Z3A.01 Less than 8 weeks gestation of pregnancy; O99.281 Endocrine, nutritional and metabolic diseases complicating pregnancy, first trimester; E86.0 Dehydration; R10.2 Pelvic and perineal pain
CPT/HCPCS: 71045; 76817; 80053; 81001; 83690; 84702; 84703; 85025; 87631; 93005; 96361; 96374; 99283; A4216; J2405

== ENCOUNTER 2024-07-22 11:33 | Emergency (ER) | payer BC, MEDICAID, SELFPAY ==
[2024-07-22 11:34] VITALS: BP 110/72; PULSE 67; RESP 15; TEMP 36.5; O2SAT 100; BMI 27.7
--- NOTE | 2024-07-22 11:51 | EX.ED.DYSGE1 ---
HPI <MARCUS Pierre - Last Filed: 07/22/24 14:20> History of Present Illness Chief Complaint: Nausea/Vomiting/Diarrhea Narrative Narrative: Patient presenting today with nausea and vomiting she has had over the last 2 days. She has tried taking Zofran but the medication did not work as she vomited shortly after taking it. She is currently 17 weeks , she follows with Dr. Graham, she denies any complications so far. She has a history of preeclampsia with her previous . She is G2, P1. She reports 2 episodes of loose stools over the past 2 days. She reports that her daughter has been having loose stools as well. She reports yesterday having epigastric abdominal pain, today she reports the pain is located across her lower abdomen. She reports she has had occasional dysuria throughout her but denies any recent dysuria. She denies vaginal bleeding, hematuria, fevers, and chills. PFSH <MARCUS Pierre - Last Filed: 07/22/24 14:20> [facility] Medical History Pre-eclampsia Family history of malignant hyperthermia Home Medications ?Medication ?Instructions ?Recorded ?Last Taken ?Type ondansetron 4 mg disintegrating 4 mg PO Q8H #10 tabs 04/03/24 07/22/24 Rx tablet aspirin 81 mg tablet,delayed 81 mg PO DAILY 07/22/24 07/22/24 History release ondansetron 4 mg disintegrating 4 mg PO Q8H PRN PRN Nausea #10 tabs 07/22/24 Unknown Rx tablet vit no.95-ferrous 1 tab PO DAILY 07/22/24 07/22/24 History fumarate 28 mg-folic acid 800 mcg tablet () Allergy/AdvReac Type Severity Reaction Status Date / Time pineapple Allergy Severe Anaphylaxis Verified 07/22/24 11:37 pumpkin Allergy Hives Verified 07/22/24 11:37 turkey AdvReac Unknown other Verified 07/22/24 11:37 Family History Other CAD (coronary artery disease) Diabetes Hypertension Surgical History History of section History of surgery Social History household members: spouse housing: house Smoking Status: Never smoker alcohol intake: current substance use type: does not use ROS <MARCUS iPerre - Last Filed: 07/22/24 14:20> ROS ED Constitutional Constitutional ED: Denies chills or fever(s) Cardiovascular Cardiovascular: Denies chest pain Respiratory/Chest Respiratory/Chest: Denies dyspnea Gastrointestinal Gastrointestinal: Reports abdominal pain, nausea and vomiting; Denies constipation or diarrhea Genitourinary Genitourinary ED: Denies dysuria, hematuria or urinary urgency Musculoskeletal Musculoskeletal: Denies back pain Integumentary Denies rash Neurologic Neurologic: Denies weakness EXAM <MARCUS Pierre - Last Filed: 07/22/24 14:20> Physical Exam Const Vital Signs: 07/22/24 11:34 07/22/24 13:33 07/22/24 14:05 Temperature 97.7 F L 98 F Temperature Source Oral Pulse Rate 67 75 75 Respiratory Rate 15 16 16 Blood Pressure 110/72 112/78 112/78 Blood Pressure Mean 84 89 89 Pulse Ox 100 98 98 Positive well nourished, well developed and no apparent distress General Appearance ED: well developed HEENT Reports normocephalic and head/scalp atraumatic Mouth ED: Yes moist mucous membranes normal Eyes PERRL and EOMs intact bilaterally Neck full ROM and supple Chest Wall inspection of chest normal Resp normal respiratory effort and clear to auscultation bilaterally Cardio regular rate and regular rhythm GI soft to palpation, non-distended and no masses GI Narrative: Minimal tenderness across the lower abdomen, no rigidity or guarding. Back/Spine normal ROM and normal to inspection Extremity normal to inspection and full ROM Neuro oriented x3, CN's II-XII intact bilaterally, moves all extremities, no focal motor deficits and no sensory deficits noted Sensorium / Orientation: awake and alert Psych mental status grossly normal and thought process normal Skin no rashes or lesions noted and no wounds <Luther Haley MD - Last Filed: 07/22/24 14:44> Physical Exam Const Vital Signs: 07/22/24 11:34 07/22/24 13:33 07/22/24 14:05 Temperature 97.7 F L 98 F Temperature Source Oral Pulse Rate 67 75 75 Respiratory Rate 15 16 16 Blood Pressure 110/72 112/78 112/78 Blood Pressure Mean 84 89 89 Pulse Ox 100 98 98 MDM <MARCUS Pierre - Last Filed: 07/22/24 14:20> [facility] Narrative Medical decision making narrative: Patient presenting today with nausea and vomiting she has had over the past 2 days. She reports pain across her lower abdomen and 2 episodes of loose stools over the past 2 days. Her daughter has also had loose stools. She is currently 17 weeks . She will be given IV fluids and Zofran. Abdominal labs will be obtained to assess for leukocytosis, electrolyte abnormality, TAJ, pancreatitis, and hepatobiliary etiology. A UA will be obtained to assess for UTI.. Her CBC, CMP, and lipase are unremarkable. heart tones are 160 bpm. UA shows positive urine ketones, 500 leukocytes and 1+ bacteria however it is contaminated with 10-25 squamous epithelial cells. She reported having intermittent dysuria throughout her but states she has not had any recent dysuria. I did speak with Dr. Salas, on-call OB, she recommends culturing the urine and holding off on treatment at this time given her nausea and vomiting. They will follow-up with her in the office next week regarding the urine culture. She reports improvement of her symptoms on reexamination, she is tolerating p.o. fluids. I suspect she likely has a gastroenteritis given her daughter has also been having loose stools. She will be discharged home in stable condition, I will give her a prescription for Zofran, recommended following closely with OB and return instructions were discussed. Lab Data Attestation: I reviewed the patient's lab results. Labs: Laboratory Results - last 24 hr 07/22/24 07/22/24 11:46 12:14 WBC 8.2 RBC 4.49 Hgb 13.6 Hct 39.0 MCV 86.9 MCH 30.3 MCHC 34.9 RDW Std Deviation 42.4 RDW Coeff of Philomena 13.4 Plt Count 323 MPV 8.4 Immature Gran % (Auto) 0.500 Neut % (Auto) 88.9 H Lymph % (Auto) 5.3 L [place] % (Auto) 5.1 Eos % (Auto) 0.0 Baso % (Auto) 0.2 Absolute Neuts (auto) 7.3 Absolute Lymphs (auto) 0.43 L Nucleated RBC % 0 Sodium 134 Potassium 3.7 Chloride 102 Carbon Dioxide 21.4 Anion Gap 11 BUN 10 Creatinine 0.56 L Estim Creat Clear Calc 128.65 Est GFR (MDRD) Non-Af 130 BUN/Creatinine Ratio 17.4 Glucose 107 H Calcium 8.6 Total Bilirubin 0.44 AST 20 ALT 10 Alkaline Phosphatase 47 Total Protein 6.7 Albumin 3.7 Globulin 3.0 Albumin/Globulin Ratio 1.3 Lipase 20 Urine Color Yellow Urine Clarity Sl. Cloudy Urine pH 6.5 Ur Specific [place] 1.015 Urine Protein 30 H Urine Glucose (UA) Normal Urine Ketones 150 A* Urine Occult Blood 25 H Urine Nitrite Negative Urine Bilirubin Negative Urine Urobilinogen 1 H Ur Leukocyte Esterase 500 H Urine RBC 0 SEEN Urine WBC 0-5 SEEN Ur Squamous Epith Cells 10-25 SEEN Urine Bacteria 1+ Urine Mucus 0 SEEN Urine Yeast RARE <Luther Haley MD - Last Filed: 07/22/24 14:44> MDM History & Record Review Discussion w/independent historian: Patient Lab Data Labs: Laboratory Results - last 24 hr 07/22/24 07/22/24 11:46 12:14 WBC 8.2 RBC 4.49 Hgb 13.6 Hct 39.0 MCV 86.9 MCH 30.3 MCHC 34.9 RDW Std Deviation 42.4 RDW Coeff of Philomena 13.4 Plt Count 323 MPV 8.4 Immature Gran % (Auto) 0.500 Neut % (Auto) 88.9 H Lymph % (Auto) 5.3 L [place] % (Auto) 5.1 Eos % (Auto) 0.0 Baso % (Auto) 0.2 Absolute Neuts (auto) 7.3 Absolute Lymphs (auto) 0.43 L Nucleated RBC % 0 Sodium 134 Potassium 3.7 Chloride 102 Carbon Dioxide 21.4 Anion Gap 11 BUN 10 Creatinine 0.56 L Estim Creat Clear Calc 128.65 Est GFR (MDRD) Non-Af 130 BUN/Creatinine Ratio 17.4 Glucose 107 H Calcium 8.6 Total Bilirubin 0.44 AST 20 ALT 10 Alkaline Phosphatase 47 Total Protein 6.7 Albumin 3.7 Globulin 3.0 Albumin/Globulin Ratio 1.3 Lipase 20 Urine Color Yellow Urine Clarity Sl. Cloudy Urine pH 6.5 Ur Specific [place] 1.015 Urine Protein 30 H Urine Glucose (UA) Normal Urine Ketones 150 A* Urine Occult Blood 25 H Urine Nitrite Negative Urine Bilirubin Negative Urine Urobilinogen 1 H Ur Leukocyte Esterase 500 H Urine RBC 0 SEEN Urine WBC 0-5 SEEN Ur Squamous Epith Cells 10-25 SEEN Urine Bacteria 1+ Urine Mucus 0 SEEN Urine Yeast RARE Management Discussion w/another healthcare provider: Industrial Management Teacher (Dr. Salas, [employer]) Treatment and Re-Evaluation :: Dr. Haley: I have personally performed a face to face assessment of the patient and have reviewed the AJ Note. I performed a substantive portion of the visit including all aspects of the following. My camacho findings include: History is nausea, vomiting, loose stool for 1 to 2 days. at 17 weeks gestation. No vaginal bleeding. Exam is afebrile. Vital signs noted. Nontoxic-appearing. Cardiovascular examination regular rate and rhythm. Lungs clear to auscultation bilaterally. Abdomen soft and nontender without guarding or rebound. Positive bowel sounds. Medical Decision Making: Check labs. Check UA. Contaminated specimen. Sent for culture. IV fluids. Discussed with POSTMASTER. Follow-up as outpatient. Disposition is discharged home in stable condition. Other additions or changes: [None] Discharge Plan Triage Chief Complaint: Nausea/Vomiting/Diarrhea ED Midlevel Provider: Vicenta Suarez ED Provider: Luther Haley Dx/Rx/DC Orders Clinical Impression: Gastroenteritis, Second trimester Instructions: ED Vomiting (Adult) Prescriptions: New ondansetron 4 mg tablet,disintegrating 4 mg PO Q8H PRN PRN (Reason: Nausea) Qty: 10 0RF No Action ondansetron 4 mg tablet,disintegrating 4 mg PO Q8H Qty: 10 0RF aspirin 81 mg tablet,delayed release (DR/EC) 81 mg PO DAILY PNV cmb#95-ferrous fumarate-FA [] 28 mg iron- 800 mcg tablet 1 tab PO DAILY Primary Care Provider: Se Pugh Referrals: Se Pugh MD [Primary Care Provider] - Activity Restrictions/Additional Instructions: Follow-up with OB early next week, return for any worsening symptoms. Stay well hydrated. Print Language: [place] Islander Disposition Disposition: Home, Self Care Discharge Date/Time: 07/22/24 14:10
[2024-07-22 12:03] LABS: Absolute Lymphocyte Count 0.43 X10^3/uL (0.83-4.51); Absolute Neutrophil Count 7.3 X10^3/uL (2.0-7.7); Basophil# 0.02 X10^3/uL; Basophil% 0.2 % (0-1); Hemoglobin 13.6 g/dL (12.0-15.0); Lymphocyte # 0.43 X10^3/ul (0.83-4.51); Lymphocyte % 5.3 % (19-41); Mean Corp Hgb Conc 34.9 g/dL (32-36); Mean Corpuscular Hgb 30.3 pg (27.0-32.0); Mean Corpuscular Volume 86.9 fL (81-99); Mean Platelet Vol. 8.4 fl (6.2-12.0); Monocyte# 0.42 X10^3/uL; Monocyte% 5.1 % (0-10); NRBC Flagged by Analyzer 0 % (0-5); Neutrophil # 7.27 X10^3/uL (2.7-7.7); Neutrophil % 88.9 % (47-70); POSITIVE DIFFERENTIAL YES; Platelet Count 323 K/mm3 (150-450); RBC Distribution Width CV 13.4 % (11.6-14.6); RBC Distribution Width SD 42.4 fl (35.1-43.9); Red Blood Count 4.49 M/mm3 (4.2-5.4); White Blood Count 8.2 K/mm3 (4.4-11.0)
[2024-07-22] MEDS: 0.9% Normal Saline (1000mL) 1,000 ML 999 ML IV ×2 (12:12→13:13)
[2024-07-22] MEDS: Ondansetron 4 MG/2 ML Vial IV (12:12)
[2024-07-22 12:18] LABS: Mucous, Urine 0 SEEN /hpf (<or=2+); Red Blood Cells-Urine 0 SEEN /hpf (0-5)
[2024-07-22 12:21] LABS: Color, Urine Yellow (Yellow); Glucose, Dipstick Normal (Normal); Leukocyte Esterase-Dipstick 500 /ul (Negative); Nitrite-Dipstick Negative (Negative); Occult Blood-Urine 25 /ul (Negative); Protein-Dipstick 30 mg/dl (Negative); Specific Gravity, Urine 1.015 (1.002-1.030); Urine Bilirubin Dipstick Negative (Negative); Urine Clarity Sl. Cloudy (Clear); Urine Urobilinogen 1 mg/dl (Normal); Urine pH 6.5 (5.0 - 8.0)
[2024-07-22 12:34] LABS: Ketone-Dipstick 150 mg/dl (Negative)
[2024-07-22 12:39] LABS: Bacteria 1+ /hpf (None Seen); Squamous Epithelial Cells - UA 10-25 SEEN /hpf (5-10); White Blood Cells 0-5 SEEN /hpf (0-5); Yeast-Urine RARE /hpf (None Seen)
[2024-07-22 13:13] LABS: ALB/GLOB Ratio 1.3 RATIO (0.9-2.4); AST(SGOT) 20 U/L (<=31); Alanine Aminotransfer ALT/SGPT 10 U/L (<=34); Albumin, Serum 3.7 g/dL (3.5-5.0); Alkaline Phosphatase 47 U/L (35-104); Anion Gap 11 (5-15); BUN 10 mg/dL (4-19); BUN/Creat Ratio 17.4 RATIO (10-20); Calcium,Total 8.6 mg/dL (7.6-11.0); Carbon Dioxide 21.4 mmol/L (21.0-32.0); Chloride 102 mmol/L (98-108); Creatinine, Serum 0.56 mg/dL (0.70-1.20); EST Glomerular Filtration Rate 130 (>60); Estimated Creatinine Clearance 128.65 ml/min (50-250); Glucose 107 mg/dL (70-99); Lipase 20 U/L (13-75); Potassium 3.7 mmol/L (3.3-5.1); Protein, Total 6.7 g/dL (5.9-8.4); Sodium Level 134 mmol/L (133-145); Total Bilirubin 0.44 mg/dL (0.00-1.30)
[2024-07-22 13:33] VITALS: BP 112/78; PULSE 75; RESP 16; O2SAT 98
[2024-07-22 14:05] VITALS: BP 112/78; PULSE 75; RESP 16; TEMP 36.6; O2SAT 98
== END 2024-07-22 14:10 | disposition home or self-care (01) ==
PROVIDERS: Physician Assistant; Emergency Provider Emergency Medicine; PCP Family Medicine; Referring Provider Emergency Medicine; Visit Provider Emergency Medicine
DX: O99.612 Diseases of the digestive system complicating pregnancy, second trimester (principal); K52.9 Noninfective gastroenteritis and colitis, unspecified; Z3A.17 17 weeks gestation of pregnancy
CPT/HCPCS: 80053; 81001; 83690; 85025; 87086; 87088; 96361; 96374; 99283; A4216; J2405

== ENCOUNTER 2024-11-08 16:08 | Emergency (ER) | payer MEDICAID, SELFPAY ==
[2024-11-08] VITALS (7 sets, daily range): BP systolic 113–135; BP diastolic 62–83; PULSE 115–130; RESP 16–24; TEMP 36.4–37.2; O2SAT 98–100; BMI 32.0
--- NOTE | 2024-11-08 16:58 | EKG12_ITS ---
Test Reason : >heart rate Blood Pressure : */* mmHG Vent. Rate : 121 BPM Atrial Rate : 121 BPM P-R Int : 126 ms QRS Dur : 88 ms QT Int : 306 ms P-R-T Axes : 45 64 32 degrees QTcB Int : 434 ms Sinus tachycardia Otherwise normal ECG Confirmed by JAQUELINE FINE, ROBERT ([id number]), deputy editor in chief DUYEN RAIN ([id number]) on 11/09/2024 8:49:35 AM Referred By: Confirmed By: ROBERT PARSONS MD
[2024-11-08 17:27] LABS: Hematocrit 36.1 % (37-47); Hemoglobin 12.2 g/dL (12.0-15.0); Immature Granulocytes Count 0.080 X10^3/uL (0.0-0.0); Mean Corp Hgb Conc 33.8 g/dL (32-36); Mean Corpuscular Volume 87.4 fL (81-99); Mean Platelet Vol. 8.6 fl (6.2-12.0); NRBC Flagged by Analyzer 0 % (0-5); Platelet Count 316 K/mm3 (150-450); RBC Distribution Width CV 12.5 % (11.6-14.6); RBC Distribution Width SD 40.3 fl (35.1-43.9); Red Blood Count 4.13 M/mm3 (4.2-5.4); White Blood Count 9.6 K/mm3 (4.4-11.0)
--- NOTE | 2024-11-08 17:48 | CT_ITS ---
PROCEDURE: CTA CHEST W/WO CONTRAST 11/08/2024 REASON FOR EXAM: DYSPNEA, TACHYCARDIA, TACHYPNEA THIRD TRIMESTER [place] TECHNIQUE: CTA CHEST W/WO CONTRAST Multiplanar Sagittal and Coronal images were obtained. One or more dose reduction techniques were used (e.g., Automated exposure control, adjustment of the mA and/or kV according to patient size, use of iterative reconstruction technique). CONTRAST: 100 cc of Isovue 370 intravenous contrast. RADIATION DOSE SUMMARY: CTDlvol: 20 mGy DLP: 371 mGycm COMPARISON: Chest x-ray 05/18/2024 FINDINGS: Hardware: None. Lymph nodes: No enlarged mediastinal, hilar, or axillary lymph nodes. Heart: Not enlarged. No pericardial effusion. Thoracic Aorta: No thoracic aortic aneurysm or dissection. Pulmonary Vessels: No large central pulmonary emboli are identified. Contrast timing is suboptimal for evaluation of more distal branches. Lungs and Airways: Diffuse pulmonary vascular congestion. No focal consolidation or discrete pulmonary mass. Airways are patent. Pleura: No pleural effusion. No pneumothorax. Upper Abdomen: Visualized portions of the upper abdominal viscera are unremarkable. Bones: Degenerative changes of the thoracic spine. CT/CTA Chest W/WO Contrast IMPRESSION: 1. No filling defects to suggest a central pulmonary embolism. 2. No acute findings in the chest as imaged. Reading [facility]
[2024-11-08 18:07] LABS: AST(SGOT) 17 U/L (<=31); Alanine Aminotransfer ALT/SGPT 10 U/L (<=34); Albumin, Serum 3.6 g/dL (3.5-5.0); Alkaline Phosphatase 115 U/L (35-104); Anion Gap 12 (5-15); BUN 7 mg/dL (4-19); BUN/Creat Ratio 13.6 RATIO (10-20); Calcium,Total 9.2 mg/dL (7.6-11.0); Carbon Dioxide 19.1 mmol/L (21.0-32.0); Chloride 106 mmol/L (98-108); Estimated Creatinine Clearance 150.56 ml/min (50-250); Globulin 2.9 g/dL (2.2-4.2); Glucose 110 mg/dL (70-99); Potassium 3.5 mmol/L (3.3-5.1)
--- NOTE | 2024-11-08 19:10 | EDS_ITS ---
HPI History of Present Illness Chief Complaint: Shortness of Breath Detail of Chief Complaint: Shortness of breath abrupt, tingling in hands and perioral Informant: patient Onset/Context/Timing Onset: Today and Hours Context: sudden Timing: Continuous Quality: Positive for Dyspnea on exertion; Negative for Orthopnea, PND or Wheezing Current Severity: Mild Maximum Severity: Moderate Worsened by: Exertion Relieved by: Nothing Associated Symptoms cough; Negative for rhinorrhea, post nasal drip, ear pain, fever, sore throat, subjective, chills, sweats, clear sputum, white sputum, yellow sputum or green sputum Chest Pain: Positive for - (Pain) Narrative Narrative: Patient is a 24-year-old female. She was sent in for evaluation of PE because her CO2 was low. Patient is a G2, P1 Ab0 female. She is approximately 32 weeks gestation. She states she had preeclampsia with her first . She denies fever, chills night sweats. She denies rhinorrhea, congestion p ostnasal drainage. She does report mild chest pain as well. She denies leg pain, swelling or discoloration. There is a family history of DVT. PE Risk Factors: Positive for - (Third trimester ); Negative for Cancer, OCP + Smoking + > 35, Prior DVT or PE, Recent immobilization, Recent surgery or Recent travel Prior similar symptoms: No Recent Illness/Hospitalization: No [facility] Medical History Pre-eclampsia Family history of malignant hyperthermia Home Medications ?Medication ?Instructions ?Recorded ?Last Taken ?Type ondansetron 4 mg disintegrating 4 mg PO Q8H #10 tabs 0 04/03/24 07/22/24 Rx tablet aspirin 81 mg tablet,delayed 81 mg PO DAILY 07/22/24 0 07/22/24 History release ondansetron 4 mg disintegrating 4 mg PO Q8H PRN PRN Na usea #10 tabs 07/22/24 Unknown Rx tablet vit no.95-ferrous 1 tab PO DAILY 07/22/2404/17 History fumarate 28 mg-folic acid 800 mcg tablet () Allergy/AdvReac Type Severity Reaction Status Date / Time pineapple Allergy Severe Anaphylaxis Verified 11/08/24 16:09 pumpkin Allergy Hives Verified 11/08/24 16:09 turkey AdvReac Unknown other Verified 11/08/24 16:09 Family History Other CAD (coronary artery disease) Diabetes Hypertension Surgical History History of section History of surgery Social History household members: spouse housing: house Smoking Status: Never smoker alcohol intake: current substance use type: does not use ROS ROS ED Constitutional Constitutional ED: Denies chills, fever(s) or sweats ENT ENT ED: Denies ear pain, rhinorrhea or sore throat Cardiovascular Cardiovascular: Reports chest pain; Denies orthopnea, palpitations, paroxysmal nocturnal dyspnea or racing heartbeat Respiratory/Chest Respiratory/Chest: Reports cough and dyspnea; Denies orthopnea, paroxysmal nocturnal dyspnea or sputum Gastrointestinal Gastrointestinal: Denies abdominal pain, constipation, nausea or vomiting Genitourinary Genitourinary ED: Reports LMP (females 10-50) and urinary frequency; Denies dysuria or hematuria Musculoskeletal Musculoskeletal: Denies arthralgias, back pain or myalgias Integumentary Denies rash Neurologic Neurologic: Reports paresthesias RUE and LUE Psychiatric Psychiatric: Reports anxiety; Denies depression Endocrine Endocrinology: Denies cold intolerance or heat intolerance EXAM Physical Exam Const Vital Signs: 11/08/24 16:10 11/08/24 16:41 11/08/24 17:13 Temperature 99.0 F Temperature Source Oral Pulse Rate 130 H 117 H 118 H Respiratory Rate 18 24 H 16 Respiratory Effort Respiratory Depth Respiratory Pattern Blood Pressure 133/83 H 135/82 H 125/75 H Blood Pressure Mean 99 99 91 Pulse Ox 100 100 98 Oxygen Delivery Method Room Air Room Air 11/08/24 18:00 11/08/24 18:05 11/08/24 19:00 Temperature Temperature Source Pulse Rate 122 H 119 H Respiratory Rate 22 H 22 H Respiratory Effort Short of Breath Respiratory Depth Normal Respiratory Pattern Normal Blood Pressure 113/77 113/77 Blood Pressure Mean 89 89 Pulse Ox 100 99 Oxygen Delivery Method Room Air Room Air Positive well nourished and well developed Constitutional Narrative: Patient is tachycardic. She is not hypoxic or tachypneic on initial vital signs. General Appearance ED: well developed HEENT Reports moist mucous membranes HEENT Narrative: Head is atraumatic normocephalic. Ears normal. Eyes PERRL and EOMs intact bilaterally General Eye ED: Negative for pale conjunctiva or scleral icterus Neck no lymphadenopathy, supple, no meningeal signs and no JVD Resp normal respiratory effort and clear to auscultation bilaterally Cardio regular rhythm, S1 normal heart sound, S2 normal heart sound and no murmurs Rate: tachycardic GI non-tender and non-distended; Negative for no masses GI Narrative: Fundal height is 4 to 5 fingerbreadths below the xiphoid process. Auscultation: hypoactive bowel sounds Palpation: soft Back/Spine normal to inspection Extremity normal to inspection Extremity Narrative: There is no asymmetry, swelling, discoloration, leg vein distention, palpable cords or tenderness along the distribution of the deep venous system. Neuro oriented x3, CN's II-XII intact bilaterally and no sensory deficits noted Sensorium / Orientation: alert Psych mental status grossly normal Skin no wounds and skin turgor normal MDM MDM MDM Narrative Medical decision making narrative: With perioral numbness, bilateral hand numbness/tingling with positive Fostex sign patient is hyperventilating may be the reason for low CO2. Since she also has chest pain and is tachycardic will obtain a CTA of her chest to assess for pulmonary embolus. CBC was obtained assess H&H as well as white count. BMP to assess renal function. Repeat vitals at 1805 reveals tachycardia and tachypnea. She is not febrile nor is she hypoxic. Lab Data Attestation: I reviewed the patient's lab results. Lab results narrative: CBC is unremarkable. Comprehensive metabolic panel is unremarkable. Alkaline phosphatase is slightly elevated. Labs: Laboratory Results - last 24 hr 11/08/24 17:15 WBC 9.6 RBC 4.13 L Hgb 12.2 Hct 36.1 L MCV 87.4 MCH 29.5 MCHC 33.8 RDW Std Deviation 40.3 RDW Coeff of Philomena 12.5 Plt Count 316 MPV 8.6 Immature Gran % (Auto) 0.800 Neut % (Auto) 69.7 Lymph % (Auto) 20.6 [place] % (Auto) 7.4 Eos % (Auto) 1.1 Baso % (Auto) 0.4 Absolute Neuts (auto) 6.7 Absolute Lymphs (auto) 1.97 Nucleated RBC % 0 Sodium 137 Potassium 3.5 Chloride 106 Carbon Dioxide 19.1 L Anion Gap 12 BUN 7 Creatinine 0.51 L Estim Creat Clear Calc 150.56 Est GFR (MDRD) Non-Af 132 BUN/Creatinine Ratio 13.6 Glucose 110 H Calcium 9.2 Total Bilirubin 0.20 AST 17 ALT 10 Alkaline Phosphatase 115 H Total Protein 6.5 Albumin 3.6 Globulin 2.9 Albumin/Globulin Ratio 1.3 Radiography Diagnostic Testing: Clinical Impression(s) from Imaging Studies Chest CTA 11/08/24 17:48 IMPRESSION: 1. No filling defects to suggest a central pulmonary embolism. 2. No acute findings in the chest as imaged. Reading Location: [facility] EKG Initial EKG: Attestation: I personally reviewed and interpreted this EKG as follows: Interpretation: Sinus Tachycardia (Sinus tachycardia 121. NC was 126 ms. QRS duration 88 ms. QT duration 306 ms. [place] is normal. Other than the tachycardia the EKG is normal) Treatment and Re-Evaluation :: Patient, and mother were informed of CAT scan results. In light of her symptoms low CO2 bilateral [place] sign unlikely patient was hyperventilating. Uncertain why. Since her scan is normal she will be discharged home Discharge Plan Triage Chief Complaint: Shortness of Breath ED Provider: Masoud Lord Dx/Rx/DC Orders Clinical Impression: Acute hyperventilation syndrome, Sinus tachycardia, Acute dyspnea Instructions: ED Hyperventilation Syndrome Prescriptions: No Action ondansetron 4 mg tablet,disintegrating 4 mg PO Q8H Qty: 10 0RF aspirin 81 mg tablet,delayed release (DR/EC) 81 mg PO DAILY PNV cmb#95-ferrous fumarate-FA [] 28 mg iron- 800 mcg tablet 1 tab PO DAILY ondansetron 4 mg tablet,disintegrating 4 mg PO Q8H PRN PRN (Reason: Nausea) Qty: 10 0RF Primary Care Provider: Se Pugh Referrals: Se Pugh MD [Primary Care Provider] - As Needed Print Language: Serbian Disposition Disposition: Home, Self Care
== END 2024-11-08 20:23 | disposition home or self-care (01) ==
PROVIDERS: Emergency Provider Emergency Medicine; PCP Family Medicine; Visit Provider Emergency Medicine
DX: O99.891 Other specified diseases and conditions complicating pregnancy (principal); R06.00 Dyspnea, unspecified; R00.0 Tachycardia, unspecified; Z3A.32 32 weeks gestation of pregnancy; F45.8 Other somatoform disorders; O99.343 Other mental disorders complicating pregnancy, third trimester
CPT/HCPCS: 71275; 80053; 85025; 93005; 99283; Q9967; A4216

== ENCOUNTER 2024-11-30 12:10 | Outpatient (CLI) | payer MEDICAID, SELFPAY ==
[2024-11-30 12:21] VITALS: BP 121/70; PULSE 112; PULSE 216; RESP 20; TEMP 37.1; O2SAT 98
[2024-11-30 12:46] VITALS: BMI 31.8
[2024-11-30] MEDS: Lactated Ringers 500 ML 999 ML IV (13:25)
[2024-11-30 14:28] VITALS: BP 117/70; PULSE 101; PULSE 104; RESP 18; TEMP 37.2; O2SAT 100
[2024-11-30 14:31] VITALS: TEMP 37.2
[2024-11-30 15:27] VITALS: BP 107/65; PULSE 104; TEMP 37.2; O2SAT 100
[2024-11-30] MEDS: Lactated Ringers 1,000 ML 125 ML IV (15:30)
[2024-11-30 15:32] VITALS: PULSE 102; O2SAT 100
[2024-11-30 16:37] LABS: Color, Urine Straw (Yellow); Glucose, Dipstick Normal (Normal); Ketone-Dipstick 50 mg/dl (Negative); Leukocyte Esterase-Dipstick 25 /ul (Negative); Nitrite-Dipstick Negative (Negative); Occult Blood-Urine Negative /ul (Negative); Protein-Dipstick 15 mg/dl (Negative); Specific Gravity, Urine 1.005 (1.002-1.030); Urine Bilirubin Dipstick Negative (Negative)
--- NOTE | 2024-11-30 16:57 | OB.TRI.HP_ITS ---
HPI - General General Date of Admission: 11/30/24 Date of Service: 11/30/24 Chief Complaint: cramping HPI Narrative HANNY SHOOK, is a 24 F who presents at 35 weeks with contractions and pressure. Cervix closed x 2. Contractions decreased after 1 liter of LR. UA with 50 ketones. Second liter was given and patient felt better. Maternal Data Information Final ANDREI: [birth year] Gestational age: 35+1 PFSH PFSH Medical History Pre-eclampsia Family history of malignant hyperthermia Home Medications ?Medication ?Instructions ?Recorded ?Last Taken ?Type ondansetron 4 mg disintegrating 4 mg PO Q8H #10 tabs 0 04/03/24 07/22/24 Rx tablet aspirin 81 mg tablet,delayed 81 mg PO DAILY 07/22/24 0 07/22/24 History release ondansetron 4 mg disintegrating 4 mg PO Q8H PRN PRN Na usea #10 tabs 07/22/24 Unknown Rx tablet vit no.95-ferrous 1 tab PO DAILY 07/22/2404/17 History fumarate 28 mg-folic acid 800 mcg tablet () Allergy/AdvReac Type Severity Reaction Status Date / Time pineapple Allergy Severe Anaphylaxis Verified 11/30/24 13:23 pumpkin Allergy Hives Verified 11/30/24 13:23 turkey AdvReac Unknown other Verified 11/30/24 13:23 Family History Other CAD (coronary artery disease) Diabetes Hypertension Surgical History History of section History of surgery Social History household members: spouse housing: house Smoking Status: Never smoker alcohol intake: current substance use type: does not use History 2 Elective abortions Hx Para 1 Spontaneous abortions Hx # Term Pregnancies Ectopic pregnancies Hx # Pregnancies Multiple births # of living children NST FHR Rate Baby A Baseline: 140 Variability:: Moderate Accelerations:: 15 x 15 Decelerations:: None NST Reactive:: Yes Assessment & Plan (1) Premature uterine contractions causing threatened premature labor in third trimester: (2) 35 weeks gestation of : (3) Dehydration: PLAN: Plan Discharged home with continued PO hydration
== END 2024-11-30 18:10 | disposition home or self-care (01) ==
LOC: WPOUT 12:10 → WP 12:11
PROVIDERS: PCP Family Medicine; Referring Provider Obstetrics & Gynecology; Visit Provider Obstetrics & Gynecology
DX: O47.03 False labor before 37 completed weeks of gestation, third trimester (principal); Z3A.35 35 weeks gestation of pregnancy; O99.283 Endocrine, nutritional and metabolic diseases complicating pregnancy, third trimester; E86.0 Dehydration
CPT/HCPCS: 96360; 96361; 36415; 59025; 59050; 81002; 87086; 99221; G0378

== ENCOUNTER 2024-12-27 10:09 | Inpatient (IN) | payer MEDICAID, SELFPAY ==
[2024-12-27] VITALS (18 sets, daily range): BP systolic 91–132; BP diastolic 60–88; PULSE 61–105; RESP 16; TEMP 36.1–36.8; O2SAT 97–100; BMI 32.8
[2024-12-27] MEDS: Lactated Ringers 1,000 ML 999 ML IV (10:15)
[2024-12-27 10:42] LABS: Hematocrit 36.1 % (37-47); Hemoglobin 12.2 g/dL (12.0-15.0); Immature Granulocytes Count 0.070 X10^3/uL (0.0-0.0); Mean Corp Hgb Conc 33.8 g/dL (32-36); Mean Corpuscular Volume 82.6 fL (81-99); Mean Platelet Vol. 9.6 fl (6.2-12.0); NRBC Flagged by Analyzer 0 % (0-5); POSITIVE COUNT YES; RBC Distribution Width CV 13.2 % (11.6-14.6); RBC Distribution Width SD 39.6 fl (35.1-43.9); Red Blood Count 4.37 M/mm3 (4.2-5.4); White Blood Count 9.7 K/mm3 (4.4-11.0)
[2024-12-27] MEDS: Lactated Ringers 1,000 ML 150 ML IV (11:16)
[2024-12-27 11:28] LABS: Differential Indicated SCAN CRITERIA MET
[2024-12-27 11:48] LABS: Syphilis Antibodies Nonreactive (Nonreactive)
[2024-12-27 11:48] LABS: Hematocrit 35.6 % (37-47); Hemoglobin 11.7 g/dL (12.0-15.0); Mean Corp Hgb Conc 32.9 g/dL (32-36); Mean Corpuscular Volume 85.4 fL (81-99); Mean Platelet Vol. 9.0 fl (6.2-12.0); Platelet Count 265 K/mm3 (150-450); RBC Distribution Width CV 13.3 % (11.6-14.6); RBC Distribution Width SD 41.1 fl (35.1-43.9); Red Blood Count 4.17 M/mm3 (4.2-5.4); White Blood Count 9.4 K/mm3 (4.4-11.0)
[2024-12-27] MEDS: Cefazolin 1 GM/5 ML Vial 2 GM IV (12:02)
[2024-12-27] MEDS: morphine PF (epidural) 5 MG/10 ML Vial EPIDURAL (12:12)
[2024-12-27 12:38] LABS: Fibrinogen 431 mg/dl (203-444)
[2024-12-27 12:47] LABS: Prothrombin Time (Protime)PT. 13.0 SECONDS (11.7-14.9)
[2024-12-27 12:48] LABS: Partial Thromboplast Time 23.1 Seconds (24.1-36.2)
--- NOTE | 2024-12-27 13:03 | PCM.HP.OB ---
HPI - General General Date of Admission: 12/27/24 Date of Service: 12/27/24 Chief Complaint: repeat C/S HPI Narrative HANNY SHOOK, is a 24 F who presents for her scheduled repeat C/S. [facility] Medical History (Updated 12/27/24 @ 13:[address] Courtney Graham, DO) Pre-eclampsia Family history of malignant hyperthermia Home Medications ?Medication ?Instructions ?Recorded ?Last Taken ?Type ondansetron 4 mg disintegrating 4 mg PO Q8H nausea #10 tabs 04/03/24 07/22/24 Rx tablet vit no.95-ferrous 1 tab PO DAILY 07/22/24 07/22/24 History fumarate 28 mg-folic acid 800 mcg tablet () Allergy/AdvReac Type Severity Reaction Status Date / Time pineapple Allergy Severe Anaphylaxis Verified 12/27/24 09:49 pumpkin Allergy Hives Verified 12/27/24 09:49 turkey AdvReac Unknown other Verified 12/27/24 09:49 Family History Other CAD (coronary artery disease) Diabetes Hypertension Surgical History (Updated 12/27/24 @ 13:[address] Courtney Graham, DO) History of section History of surgery Social History household members: spouse housing: house Smoking Status: Never smoker alcohol intake: current substance use type: does not use History 2 Elective abortions Hx Para 1 Spontaneous abortions Hx # Term Pregnancies Ectopic pregnancies Hx # Pregnancies Multiple births # of living children Addt'l History: History of severe pre e and intolerance to labor at 34 weeks Vital Signs Vital Signs Vital Signs: 12/27/24 09:53 Temperature 97.4 F L Temperature Source Temporal Pulse Rate 105 H Respiratory Rate 16 Blood Pressure 121/88 H Blood Pressure Mean 99 Blood Pressure Source Monitor Blood Pressure Position Semi-Fowlers Blood Pressure Location Left Arm Pulse Ox 97 Oxygen Delivery Method Room Air Weight Weight: 168 lb 3.403 oz Body Mass Index (BMI) 32.8 Physical Exam Const alert and no apparent distress General Appearance: comfortable Resp normal respiratory effort GI soft to palpation, non-tender and non-distended Extremity normal to inspection Labs Labs Labs: Blood Type B NEGATIVE Antibody Screen NEGATIVE Hct, (37-47) 35.6 % L Hgb, (12.0-15.0) 11.7 g/dL L Obstetrics Ultrasound Syphilis Total Ab, (Nonreactive) Nonreactive Group B Strep DNA, (Negative) Negative Rhogam given: Yes Miscellaneous Test Assessment & Plan (1) 39 weeks gestation of : (2) History of pre-eclampsia in prior , currently : (3) History of section: PLAN: Discussed r/b/a TOLAC vs repeat C/S. Patient desires repeat C/S. Consent signed.
--- NOTE | 2024-12-27 13:06 | OP.PCM_ITS ---
Operative Report (Standard) Operative Information Date of Procedure: 12/27/24 Pre-Operative Diagnosis: 39 week gestation, history prior section, history of severe pre eclampsia Post-Operative Diagnosis: As above Surgery/Procedure Performed: RLTCS via pfannenstiel incision asset administrator: Yes Database Tester: Josey PEÑA Tasks completed by first sampler: Closing and Retracting Type of Anesthesia: Spinal RN Documented Start/Stop Times: Operation Date: 12/27/24 12:00 <No data on this case meets the specified criteria> Procedure Start Time: 12:26 Procedure Stop Time: 13:20 Select all DRAINS/GRAFTS/IMPLANTS that apply: None Estimated Blood Loss: 600 mL Fluids Replaced: 800 mL Specimen collected: No Description of surgery: The patient was taken to the operating room where spinal anesthesia was found to be adequate. She was prepped and draped in dorsal supine position with a leftward tilt. A Pfannenstiel skin incision was made using a scalpel, and this incision was carried down to underlying layer of fascia. The fascia was incised in midline. The fascia was extended laterally using Kelley scissors. The fascia was dense and adhered to the rectus muscles. The fascia was tented off the rectus muscles using Galina clamps and dissected from the rectus muscles using a combination of sharp and blunt dissection. Upon dissection, the rectus muscles were already in the midline, and the peritoneum was entered bluntly. The peritoneal incision was extended with lateral traction with good visual ization of the bladder. A bladder blade was inserted. A low transverse incision was made on the uterus with a scalpel. The uterine incision was extended using cephalad and caudad traction, and membranes were ruptured for clear fluid. The head followed by the body were delivered without any traction, force, or delay with the 's head in a flexed position. A vigorous viable male infant was delivered. The cord was clamped and cut after a delay. The infant was handed off to the awaiting nursing staff. The placenta was removed with uterine massage. The placenta was noted to be normal-appearing and intact. The uterus was exteriorized. The uterus was cleared of all clot debris. The hysterotomy was closed with 1-0 Vicryl in a running locked fashion. Hemostasis was noted. Bilateral adnexa were normal-appearing. The uterus was placed back into the abdomen. The hysterotomy was again noted to be hemostatic. The subfascial space was inspected, and the rectus along the right side was bleeding and was made hemostatic with the Bovie cautery and Hemablast. Once hemostasis was confirmed, the fascia was closed with STRATAFIX in a running fashion. The subcutaneous space was irrigated and made hemostatic with Bovie cautery. The subcutaneous space was reapproximated with 3-0 Vicryl. The skin was closed with 4-0 Monocryl in a subcuticular fashion. A dressing was placed. Instrument, sharp, sponge counts were correct x 2 the patient was taken to the recovery in stable condition. Surgical Findings: Some adhesive disease of fascia to rectus Normal appearing uterus and bilateral adnexa Clear fluid Normal appearing placenta VMI with Apgars 9, 9 Complications Complications: No Admit VTE Documentation VTE Present on Admission: No VTE Mechan Device Prophylaxis: SCD's
[2024-12-27] MEDS: Oxytocin 15 Units/NS 250ml 15 UNITS/250 ML IV.SOLN 83 UNITS IV (13:30)
[2024-12-27] MEDS: 0.9% Saline Lock 10 ML Syringe IV ×2 (14:24→20:07)
[2024-12-27] MEDS: Ketorolac 30 MG/ML Syringe IV ×2 (14:24→20:07)
[2024-12-27] MEDS: Lactated Ringers 1,000 ML 100 ML IV (17:02)
[2024-12-28] MEDS: 0.9% Saline Lock 10 ML Syringe IV ×2 (02:20→08:47)
[2024-12-28] MEDS: Ketorolac 30 MG/ML Syringe IV ×2 (02:20→08:47)
[2024-12-28 03:38] VITALS: BP 120/68; PULSE 91; RESP 16; TEMP 36.4; O2SAT 100
[2024-12-28 05:54] LABS: Hematocrit 30.9 % (37-47); Hemoglobin 10.5 g/dL (12.0-15.0); Mean Corp Hgb Conc 34.0 g/dL (32-36); Mean Corpuscular Volume 83.3 fL (81-99); Mean Platelet Vol. 9.0 fl (6.2-12.0); Platelet Count 234 K/mm3 (150-450); RBC Distribution Width CV 13.4 % (11.6-14.6); RBC Distribution Width SD 40.7 fl (35.1-43.9); Red Blood Count 3.71 M/mm3 (4.2-5.4); White Blood Count 10.1 K/mm3 (4.4-11.0)
[2024-12-28 08:00] VITALS: BP 113/60; PULSE 92; RESP 16; TEMP 36.6; O2SAT 99
--- NOTE | 2024-12-28 08:43 | PCM.PN.OB ---
Subjective Subjective Pain controlled. Objective Data Objective Data Vital Signs: Vital Signs Temp Pulse Resp BP Pulse Ox O2 Del Method 97.5 F L 91 16 120/68 100 Room Air 12/28/24 03:38 12/28/24 03:38 12/28/24 03:38 12/28/24 03:38 12/28/24 03:38 12/28/24 03:38 Oxygen Delivery Method Room Air Weight: 168 lb 3.403 oz Body Mass Index (BMI) 32.8 Intake & Output: Intake and Output for Last 24 Hours 12/26/24 12/27/24 12/28/24 23:59 23:59 23:59 Intake Total 1460 / 1460 930 / 930 Output Total 1100 / 1100 500 / 500 Balance 360 / 360 430 / 430 Lab / Micro Data 12/28/24 05:15 Labs: Laboratory Results - last 24 hr 12/27/24 10:15: WBC 9.7, RBC 4.37, Hgb 12.2, Hct 36.1 L, MCV 82.6, MCH 27.9, MCHC 33.8, RDW Std Deviation 39.6, RDW Coeff of Philomena 13.2, Plt Count TNP, MPV 9.6, Immature Gran % (Auto) 0.700, Neut % (Auto) 74.0 H, Lymph % (Auto) 17.3 L, [place] % (Auto) 6.7, Eos % (Auto) 1.1, Baso % (Auto) 0.2, Absolute Neuts (auto) 7.2, Absolute Lymphs (auto) 1.68, Nucleated RBC % 0, Platelet Estimate ADEQUATE, Syphilis Total Ab Nonreactive, Blood Type B NEGATIVE, Antibody Screen NEGATIVE 12/27/24 11:40: WBC 9.4, RBC 4.17 L, Hgb 11.7 L, Hct 35.6 L, MCV 85.4, MCH 28.1, MCHC 32.9, RDW Std Deviation 41.1, RDW Coeff of Philomena 13.3, Plt Count 265, MPV 9.0 12/27/24 11:50: PT 13.0, INR 1.0, APTT 23.1 L, Fibrinogen 431 12/28/24 05:15: WBC 10.1, RBC 3.71 L, Hgb 10.5 L, Hct 30.9 L, MCV 83.3, MCH 28.3, MCHC 34.0, RDW Std Deviation 40.7, RDW Coeff of Philomena 13.4, Plt Count 234, MPV 9.0 Physical Exam Const alert, oriented x3 and no apparent distress HEENT normocephalic GI soft to palpation, non-tender and non-distended GI Narrative: fundus firm, mid & below umbilicus Incision - bandage c/d/i Extremity normal to inspection and no calf tenderness Assessment & Plan (1) History of section: COMMENT: POD#1 PLAN: Plan Heme - HDS, CBC reviewed ID - AF, no signs infection GI/ - no issues POssible d/c home later today
--- NOTE | 2024-12-28 08:44 | DS.PCM_ITS ---
Providers Date of Admission: 12/27/24 Primary Care Physician: Dr. Se Pugh MD Reason For Visit: REPEAT C SECTION Diagnosis Discharge Diagnosis (1) History of section: Status: Acute Code(s): Z98.891 - History of uterine scar from previous surgery Plan Heme - HDS, CBC reviewed ID - AF, no signs infection GI/ - no issues POssible d/c home later today Medications at Discharge Home Medications vit no.95-ferrous fumarate 28 mg-folic acid 800 mcg tablet () 1 tab PO DAILY 07/22/24 acetaminophen 500 mg tablet 1,000 mg (2 x 500 mg) PO Q6H #0 tabs 12/28/24 ibuprofen 600 mg tablet 600 mg PO Q6H #0 tabs 12/28/24 Hospital Course Operations section Procedures None Summary of Care Provided Minutes Spent on Discharge: 15 Weight / BMI Weight Weight: 168 lb 3.403 oz Body Mass Index (BMI) 32.8 ABG / Lab / Microbiology Data 12/28/24 05:15 Laboratory: Laboratory Results - last 24 hr 12/27/24 10:15: WBC 9.7, RBC 4.37, Hgb 12.2, Hct 36.1 L, MCV 82.6, MCH 27.9, MCHC 33.8, RDW Std Deviation 39.6, RDW Coeff of Philomena 13.2, Plt Count TNP, MPV 9.6, Immature Gran % (Auto) 0.700, Neut % (Auto) 74.0 H, Lymph % (Auto) 17.3 L, [place] % (Auto) 6.7, Eos % (Auto) 1.1, Baso % (Auto) 0.2, Absolute Neuts (auto) 7.2, Absolute Lymphs (auto) 1.68, Nucleated RBC % 0, Platelet Estimate ADEQUATE, Syphilis Total Ab Nonreactive, Blood Type B NEGATIVE, Antibody Screen NEGATIVE 12/27/24 11:40: WBC 9.4, RBC 4.17 L, Hgb 11.7 L, Hct 35.6 L, MCV 85.4, MCH 28.1, MCHC 32.9, RDW Std Deviation 41.1, RDW Coeff of Philomena 13.3, Plt Count 265, MPV 9.0 12/27/24 11:50: PT 13.0, INR 1.0, APTT 23.1 L, Fibrinogen 431 12/28/24 05:15: WBC 10.1, RBC 3.71 L, Hgb 10.5 L, Hct 30.9 L, MCV 83.3, MCH 28.3, MCHC 34.0, RDW Std Deviation 40.7, RDW Coeff of Philomena 13.4, Plt Count 234, MPV 9.0 D/C Instructions Discharge Activity: May Shower May resume sexual activity in: 6 weeks Weight Bearing Status: Weight bearing as tolerated Call your doctor if your incision/area has: Continuous Slow Oozing, Sudden Increased Bleeding, Increased Pain/ Swelling, Increased Redness, Foul Smelling Discharge and Swelling at the incision site Call your doctor if you observe: Fever of 101 or Higher, Coldness, Increased Pain, Change in Color, Inability to urinate, Inability to have a bowel movement, Using more than 1 pad per hour, Shortness of breath, Dizziness, Fainting spells, Chest pain, Increased palpitations (irregular heartbeat), Calf discomfort and Uncontrolled pain Suture Line Care: Avoid Pulling/Pushing and Avoid Pinching/Bending Remove Dressing in: 1 week Cleanse incision/area with: Soap & Water DC O2, CPAP, BIPAP Needs Home O2 Discharge instructions: No Please Follow Up With: Raven Pena MD When: Follow up in 2 and 6 weeks for visits. Meaningful Use Info Meaningful Use Meaningful Use Diagnoses (Choose all that apply): None applicable Discharge Plan Admission Admit Date/Time: 12/27/24 10:09 Primary Reason for Your Visit: section Attending Provider: Courtney Graham Primary Care Provider: Se Pugh Discharge Orders/Prescriptions Prescriptions: New acetaminophen 500 mg Tablet 1,000 mg PO Q6H Qty: 0 0RF ibuprofen 600 mg Tablet 600 mg PO Q6H Qty: 0 0RF Continued PNV no.95-ferrous fumarate-FA [] 28 mg iron- 800 mcg tablet 1 tab PO DAILY Discontinued ondansetron 4 mg tablet,disintegrating 4 mg PO Q8H Qty: 10 0RF Referrals / Follow Up: Se Pugh MD [Primary Care Provider, [facility]] Disposition Disposition (needs filled in before D/C Order can be placed): Home, Self Care
[2024-12-28 14:00] VITALS: BP 111/73; PULSE 90; RESP 16; TEMP 36.4; O2SAT 99
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
== END 2024-12-28 16:10 | disposition home or self-care (01) | DRG 540 ==
PROVIDERS: Admitting Provider Obstetrics & Gynecology; PCP Family Medicine; Referring Provider Obstetrics & Gynecology; Visit Provider Obstetrics & Gynecology
PROC: 10D00Z1 Extraction of Products of Conception, Low, Open Approach (ICD-10-PCS; CPT 59514; principal; 2024-12-27 11:45)
DX: O34.211 Maternal care for low transverse scar from previous cesarean delivery (principal); Z37.0 Single live birth; Z3A.39 39 weeks gestation of pregnancy; Z87.59 Personal history of other complications of pregnancy, childbirth and the puerperium
CPT/HCPCS: 59050; 85025; 85027; 85384; 85610; 85730; 86780; 86850; 86900; 86901; 99221; A4216; G0378; J2405

== ENCOUNTER 2025-01-23 19:59 | Emergency (ER) | payer MEDICAID, SELFPAY ==
[2025-01-23 20:00] VITALS: BP 136/85; PULSE 103; RESP 18; TEMP 36.3; O2SAT 100
--- NOTE | 2025-01-23 20:48 | EX.ED.UPPERE ---
HPI History of Present Illness HPI Narrative: 24-year-old female had a delivery about 3 weeks ago. Did well. Basically shortly after that has developed mild swelling in her right forearm. She did have an IV in that arm but it is in the antecubital area and the swelling is on her proximal posterior lateral forearm. Denies any fever. Was seen in urgent care placed on antibiotic. She said the swelling is gotten worse in spite of the antibiotic which she only has a few days left. No prior history of DVT or PE. Chief Complaint: Upper Extremity Injury Informant: patient Occured/Mechanism Mechanism/Context: No injury and No blunt trauma Onset/Context/Timing Onset: Weeks Context: Gradual Onset Timing: Continuous Quality of Pain: Dull and Aching Current Severity: Mild Maximum Severity: Mild Associated Symptoms Associated Symptoms: Negative for Parasthesia, Weakness or Loss of Funtion Narrative Narrative: 24-year-old female status post delivery 3 weeks ago with atraumatic swelling mild discomfort to her proximal right forearm. [id number]. No history of trauma. Prior similar symptoms: No Recent Illness/Hospitalization: Yes PFSH PFSH Medical History Cellulitis of right forearm Pre-eclampsia Family history of malignant hyperthermia Home Medications ?Medication ?Instructions ?Recorded ?Last Taken ?Type amoxicillin 875 mg tablet 875 mg PO BID #20 tabs 01/19/25 Unknown Rx Allergy/AdvReac Type Severity Reaction Status Date / Time pineapple Allergy Severe Anaphylaxis Verified 01/23/25 20:00 pumpkin Allergy Hives Verified 01/23/25 20:00 turkey AdvReac Unknown other Verified 01/23/25 20:00 Family History Other CAD (coronary artery disease) Diabetes Hypertension Surgical History History of section History of surgery Social History household members: spouse housing: house Smoking Status: Never smoker alcohol intake: current substance use type: does not use ROS ROS ED ROS Narrative Denies recent illness. Constitutional Constitutional ED: Denies chills or fever(s) Eyes Eyes: Denies blurry vision ENT ENT ED: Denies ear pain Cardiovascular Cardiovascular: Denies chest pain or palpitations Respiratory/Chest Respiratory/Chest: Denies cough Gastrointestinal Gastrointestinal: Denies abdominal pain Genitourinary Genitourinary ED: Denies dysuria Musculoskeletal Musculoskeletal: Denies back pain or myalgias Integumentary Denies abscess or Abrasions Neurologic Neurologic: Denies headache(s) Psychiatric Psychiatric: Denies anxiety or depression Hematologic/Lymphatic Hematologic/Lymphatic: Denies easy bleeding, easy bruising or lymphadenopathy Allergic/Immunologic Allergic/Immunologic ED: Denies mouth swelling, tongue swelling or urticaria EXAM Physical Exam Narrative Exam Narrative: 24-year-old female vital signs are stable afebrile. Pulse ox 100% on room air no hypoxia. H EENT exam pupils round react to light. Moist mucous membranes. Neck nontender no JVD. Lungs clear to auscultation. Heart regular rhythm rate about 100 no murmur. Chest wall and ribs nontender. Abdomen soft nontender. Moving all 4 extremities. Calves are nontender without edema or cords. Right forearm normal range of motion. Normal strength. 5 out of 5 printed circuit boards inspector strength. Normal radial pulse. The proximal forearm posterior lateral side has mild tenderness. No redness. Mild swelling. No cords. No lymphangitic streaking. Full range of motion to her hand, wrist, elbow and shoulder. No lymphangitic streaking. No axillary lymphadenopathy. This does not look infected. It could be consistent with either superficial thrombophlebitis or DVT in the arm. No bony deformity. Normal range of motion and strength. Otherwise exam unremarkable. Const Vital Signs: 01/23/25 20:00 Temperature 97.3 F L Temperature Source Temporal Pulse Rate 103 H Respiratory Rate 18 Blood Pressure 136/85 H Blood Pressure Mean 102 Pulse Ox 100 Oxygen Delivery Method Room Air MDM MDM MDM Narrative Medical decision making narrative: 24-year-old female atraumatic right forearm swelling getting worse despite antibiotic. Recent delivery. Concern for possible superficial thrombophlebitis versus DVT of the forearm. Ultrasounds not available tonight for this specific study. To be ordered as an outpatient to be done tomorrow morning. She will follow-up to have that done. Discharge Plan Triage Chief Complaint: Upper Extremity Injury ED Provider: Star Rodriguez Dx/Rx/DC Orders Clinical Impression: Localized swelling of right forearm Prescriptions: No Action amoxicillin 875 mg tablet 875 mg PO BID Qty: 20 0RF Other Ambulatory Orders: Venous Duplex US, Unilateral (Stat) Facility: [facility] - Location: [facility] Ordered By: Dr. Star Rodriguez Primary Care Provider: Se Pugh Referrals: Se Pugh MD [Primary Care Provider, Family Practice] - As Needed Activity Restrictions/Additional Instructions: Swelling of your right forearm uncertain cause. I do not think this is infected. Finish the antibiotic. I will order an ultrasound to be done tomorrow morning. They should call you by 10 AM if they do not call the emergency department. They will set you up to have an ultrasound done tomorrow morning Friday morning in the vascular lab. To evaluate your forearm for possible blood clot or superficial thrombophlebitis. Print Language: Montserratian Disposition Disposition: Home, Self Care Discharge Date/Time: 01/23/25 20:51
[2025-01-23 20:49] VITALS: BP 136/85; PULSE 88; RESP 18; TEMP 36.3; O2SAT 100
== END 2025-01-23 20:51 | disposition home or self-care (01) ==
LOC: ED 20:47
PROVIDERS: Emergency Provider Emergency Medicine; PCP Family Medicine; Visit Provider Emergency Medicine
DX: R22.31 Localized swelling, mass and lump, right upper limb (principal)
CPT/HCPCS: 99282

== ENCOUNTER → 2025-01-24 | Outpatient (CLI) | payer MEDICAID, SELFPAY ==
--- NOTE | 2025-01-24 10:58 | VDUE_ITS ---
Reason For Study Reason For Study: RUE Pain / Swelling Right Proximal Right jugular vein is spontaneous, widely patent, phasic, with no intraluminal echogenicity noted. Right subclavian vein is spontaneous, widely patent, phasic, with no intraluminal echogenicity noted. Right Lower Arm Right radial vein is compressible. Right ulnar vein is compressible. Right Arm Right axillary vein is spontaneous, patent, phasic, competent, compressible and demonstrates augmentation. Right brachial vein is compressible. Right cephalic vein is compressible. Rt Basilic Vein appears dilated and NONCOMPRESSIBLE at mid and distal. Finding is consistent with ACUTE SVT. Procedure This was a unilateral right upper extremity venous doppler examination. Exam performed in department. A preliminary report was called and/or faxed to NAVEEN Castillo at [facility] and referrred to PT's PCP. The exam was diagnostic. VL/Venous Duplex US, Unilateral Interpretation Summary Deep veins of the right upper extremity are patent and compressible segmentally . There is no evidence of deep vein thrombosis. Acute superficial thrombophlebitis is noted in the mid- and distal right basilic vein. The right cephalic vein is patent and compressible. Ordering Physician: Star Rodriguez Referring Physician: Se Pugh Performed By: Perry Rowe RVT and Student ???
== END | disposition home or self-care (01) ==
LOC: CVS 10:56
PROVIDERS: PCP Family Medicine; Referring Provider Emergency Medicine; Visit Provider Emergency Medicine
DX: R22.31 Localized swelling, mass and lump, right upper limb (principal)
CPT/HCPCS: 93971